=== PATIENT | male | born 1980 | race Caucasian/White ===

== ENCOUNTER 2023-11-02 10:34 | Emergency (ER) | payer OTHER, SELFPAY ==
[2023-11-02] VITALS (8 sets, daily range): BP systolic 143–160; BP diastolic 94–102; PULSE 90–112; RESP 13; TEMP 36.8; O2SAT 92–98; BMI 27.8
--- NOTE | 2023-11-02 11:00 | ED_ITS ---
HPI - General Adult General Chief complaint: Abdominal Pain Stated complaint: L side adb pain T-2/ cant get comfortable Time Seen by Provider: 11/02/23 10:53 Source: patient Mode of arrival: Ambulatory History of Present Illness HPI narrative: Patient is a 43-year-old male. States he has a history of tachycardia. He actually has not been on any of his medications in 2 weeks he was he just retired from the [employer] and has been ?partying? his here for evaluation of left- sided abdominal pain. Started earlier this week. Was a fairly gradual onset and has been persistent since then. No fevers. No nausea or vomiting. No change in bowel habits. No diarrhea or constipation. He did have a regular bowel movement last evening. It did not changes abdominal pain. He has been urinating without issues. He thinks that maybe urinating improves the symptoms for very short period of time. No skin rashes. Related Data Previous Rx's Medication Instructions Recorded hydrocodone 5 mg-acetaminophen 325 1 tab PO Q4-6H PRN pain #14 tabs 11/02/23 mg tablet ondansetron 4 mg disintegrating 4 mg PO Q6H PRN nausea and 11/02/23 tablet vomiting #14 tabs potassium chloride 20 mEq 20 meq PO DAILY 7 days #7 tabs 11/02/23 tablet,extended release tamsulosin 0.4 mg capsule (Flomax) 0.4 mg PO DAILY #14 caps 11/02/23 Allergies Allergy/AdvReac Type Severity Reaction Status Date / Time No Known Drug Allergies Allergy Verified 11/02/23 10:44 Review of Systems Review of Systems Narrative: See HPI Patient History Social History Smoking Status: Current every day smoker Smoking Status: Current every day smoker alcohol intake frequency: 3 or more drinks per day Substance Use Type: does not use Exam Initial Vital Signs Initial Vital Signs: Vital Signs Temperature 98.3 F 11/02/23 10:36 Pulse Rate 112 H 11/02/23 10:36 Respiratory Rate 13 11/02/23 10:36 Blood Pressure 149/102 H 11/02/23 10:36 Pulse Oximetry 95 11/02/23 10:36 Oxygen Delivery Method Room Air 11/02/23 10:36 Const General: cooperative, comfortable and No ill appearing Resp Effort & Inspection: normal respiratory effort Cardio Rate: tachycardic GI Inspection: normal to inspection and non-distended Palpation: soft, No firm, No guarding and tender (Very mild tenderness to palpation left-sided abdomen) Skin General: no rashes or lesions noted Neuro General: patient alert, patient awake, patient oriented x3 and moves all extremities Extrem General: normal to inspection Course Orders Ordered: ED Orders 11/02/23 10:46 EKG-12 Lead Stat 11/02/23 11:00 CT abdomen pelvis w con Stat 11/02/23 11:25 Complete Blood Count AUTO DIFF Stat Comprehensive Metabolic Panel Stat Lipase Stat 11/02/23 13:08 Urine Microscopic Stat Ondansetron HCl (Ondansetron 4 Mg/2 Ml Inj) 4 mg IV NOW PRN PRN Reason: Nausea And Vomiting Discontinued Medications Sodium Chloride (Normal Saline 0.9%) 1,000 mls @ 1,000 mls/hr IV BOLUS ONE Stop: 11/02/23 12:43 Last Infusion: 11/02/23 13:20 Dose: Infused Documented By: Admin: 11/02/23 12:20 Dose: 1,000 mls/hr Documented By: CUONG Potassium Chloride (Potassium Chloride 20 Meq Tab) 40 meq PO NOW ONE Stop: 11/02/23 12:20 Last Admin: 11/02/23 13:18 Dose: 40 meq Documented By: CUONG Vital Signs Vital signs: Vital Signs - 8 hr 11/02/23 10:36 Temperature 98.3 F Pulse Rate 112 H Respiratory Rate 13 Blood Pressure 149/102 H Pulse Oximetry 95 Oxygen Delivery Method Room Air Medical Decision Making Lab Data Lab results reviewed: Yes I reviewed the patient's lab results. 11/02/23 11:25 11/02/23 11:25 Labs: Lab Results 11/02/23 11/02/23 Range/Units 11:25 13:08 WBC 9.7 (4.5-11.0) X10^3/uL RBC 3.90 L (4.5-5.9) X10^6/uL Hgb 13.8 (13.5-17.5) g/dL Hct 39.1 L (41-53) % MCV 100.3 H (80-100) fL MCH 35.3 H (26-34) PG MCHC 35.2 (30-36) % RDW 14.0 (11.6-14.8) % Plt Count 134 L (150-400) X10^3/uL Neut % (Auto) 80.7 H (50-75) % Lymph % (Auto) 11.2 L (25-40) % [place] % (Auto) 7.4 (3-14) % Eos % (Auto) 0.3 L (2-4) % Baso % (Auto) 0.4 (0-2) % Neut # (Auto) 7800 H (0767-2073) /uL Lymph # (Auto) 1100 (8665-1582) /uL [place] # (Auto) 700 (0-900) /uL Eos # (Auto) 0 (0-450) /uL Baso # (Auto) 0 (0-100) /uL Sodium 134 L (137-145) mmol/L Potassium 2.2 L* (3.4-5.1) mmol/L Chloride 88 L (98-107) mmol/L Carbon Dioxide 36 H (22-32) mmol/L BUN 6 L (9-20) mg/dL Creatinine 0.89 (0.66-1.25) mg/dL Estimated GFR > 60 (>60) mL/min BUN/Creatinine Ratio 6.7 (6-22) Glucose 139 H (70-100) mg/dL Calcium 7.3 L (8.4-10.2) mg/dL Total Bilirubin 1.6 H (0.2-1.3) mg/dL AST 41 (17-59) IU/L ALT 26 (<50) IU/L Alkaline Phosphatase 82 (38-126) U/L Total Protein 5.9 L (6.3-8.2) g/dL Albumin 3.4 L (3.5-5.0) g/dL Globulin 2.5 (1.7-4.1) g/dL Albumin/Globulin Ratio 1.4 (1.0-2.8) Lipase 93 (23-300) U/L Urine RBC 0-1/hpf (0-5/HPF) Urine WBC None seen (0-5/HPF) Ur Squamous Epith Cells None seen (0-5/HPF) Calcium Oxalate Crystal Occasional H Urine Bacteria None seen (None) Ur Culture Indicated? Cult not indicated Vol Urine Centrifuged 10ml (spun) Urine Dip Bedside Urine Glucose Negative Bedside Urine Bilirubin - Negative Bedside Urine Ketone - Negative Urine Specific [place] 1.010 Bedside Urine Occult Blood ++ Bedside Urine pH 6.5 Bedside Urine Protein - Negative Bedside Urine Urobilinogen - Negative Bedside Urine Nitrite - Negative Bedside Urine Leukocytes - Negative Esterase Point of care testing: Urine Dip Bedside Urine Glucose Negative Bedside Urine Bilirubin - Negative Bedside Urine Ketone - Negative Urine Specific [place] 1.010 Bedside Urine Occult Blood ++ Bedside Urine pH 6.5 Bedside Urine Protein - Negative Bedside Urine Urobilinogen - Negative Bedside Urine Nitrite - Negative Bedside Urine Leukocytes - Negative Esterase Imaging Data CT scan - abdomen/pelvis: Radiologist's Impression: PROCEDURE: CT ABDOMEN PELVIS W CON INDICATIONS: LLQ abd pain TECHNIQUE: After the administration of intravenous contrast, axial sections acquired from the lung bases to the pubic symphysis. Coronal and sagittal reformats were performed. For radiation dose reduction, the following was used: automated exposure control, adjustment of mA and/or kV according to patient size. COMPARISON: None. FINDINGS: Image quality: Diagnostic. Lower Chest: Mild dependent atelectasis in posterior aspect of bilateral lung bases are seen. Heart size is normal, no pericardial effusion. ABDOMEN: Liver: Diffusely decreased liver parenchymal density is seen. Small amount of free fluid adjacent to anterior aspect of right hepatic lobe is seen. No gross solid appearing hepatic lesion. Gallbladder: There is no calcified gallstones or gallbladder wall thickening. Biliary ducts: No biliary dilation. Pancreas: No ductal dilation. Spleen: Size is within normal limits. Adrenal Glands: No adrenal nodules. Kidneys and Ureters: There is moderate left-sided hydronephrosis and left perinephric fat stranding. Left hydroureter is seen extending to the distal ureter with 7 mm calcifications seen within distal left ureter and measures 150 Hounsfield unit in density series 2, image 80, series 3, image 40. No right-sided hydronephrosis or hydroureter. Stomach and Bowel: There is suggestion of diffuse small bowel wall thickening extending to ileocecal junction with ascending and descending colon wall thickening as well as sigmoid colon wall thickening. Mild mesenteric fat stranding is seen. No abscess collection. Peritoneum: Small amount of free fluid is noted adjacent to right hepatic lobe. Small amount of pelvic free fluid is also seen. No gross free air. Ventral Wall: No significant ventral hernia. Abdominal Nodes: No retroperitoneal or mesenteric adenopathy by size criteria. Vessels: Aorta and inferior vena cava are normal in size. PELVIS: Pelvic Organs: Unremarkable. Bladder: No bladder wall thickening, accounting for underdistention. Pelvic Nodes: No enlarged lymph nodes. Miscellaneous: Small bilateral inguinal hernia are seen containing fat only. Bones: No aggressive osseous abnormality. IMPRESSION: 1. 7 mm stone in left distal ureter causing moderate left-sided hydronephrosis and left proximal to mid hydroureter. Significant left perinephric fat stranding. No right-sided hydronephrosis or hydroureter. Normal appearing urinary bladder. 2. Small amount of free fluid in abdomen. No gross free air. Diffuse small bowel and colon wall thickening with mild pericolonic fat stranding concerning for extensive infectious or inflammatory enterocolitis suggest clinical correlation. No abscess collection. 3. Hepatic steatosis, no discrete hepatic lesion. [facility] Narrative Medical decision making narrative: Patient was tachycardic but this is not unusual for him. CT scan shows 7 mm left-sided distal ureteral stone which does correspond to his presenting symptoms today. He was afebrile. Patient is hypokalemic. He states he has been hypokalemic 1 time in the past and he was put on oral potassium for a couple days but has not had follow-up since then. He has not been vomiting recently. Does have left-sided hydro. No signs of UTI. Kidney functions unremarkable. No indication for emergent urologic consultation. Will discharge patient home with symptom control on medications. He was given return precautions and follow-up instructions. He expressed understanding and agreement. Discharge Plan Departure Patient Disposition: Home Clinical Impression: Left ureteral calculus, Hypokalemia Instructions: DI for Kidney Stones Activity Restrictions/Additional Instructions: I do recommend that you contact your primary doctor for follow-up. Take all of the medications as directed. Contact the urologist at the number provided below for follow-up. Return to the emergency department for new or worsening symptoms like we discussed Prescriptions: New tamsulosin [Flomax] 0.4 mg capsule 0.4 mg PO DAILY Qty: 14 0RF ondansetron 4 mg tablet,disintegrating 4 mg PO Q6H PRN (Reason: nausea and vomiting) Qty: 14 0RF hydrocodone-acetaminophen 5-325 mg tablet 1 tab PO Q4-6H PRN (Reason: pain) Qty: 14 0RF potassium chloride 20 mEq tablet extended release 20 meq PO DAILY 7 Days Qty: 7 0RF Referrals: Miscellaneous,Doctor, MD [Primary Care Provider] - Matthieu Torres MD [Physician] - Stand Alone Forms: Patient Portal/API
[2023-11-02 11:36] LABS: Add Manual Diff / Slide Review NO; Basophils Absolute Auto 0 /uL (0-100); Basophils Percent Auto 0.4 % (0-2); Eosinophils Absolute Auto 0 /uL (0-450); Eosinophils Percent Auto 0.3 % (2-4); Hematocrit 39.1 % (41-53); Hemoglobin 13.8 g/dL (13.5-17.5); Lymphocytes Absolute Auto 1100 /uL (1100-4500); Lymphocytes Percent Auto 11.2 % (25-40); Mean Corpuscular HGB Conc 35.2 % (30-36); Mean Corpuscular Hemoglobin 35.3 PG (26-34); Mean Corpuscular Volume 100.3 fL (80-100); Monocytes Absolute Auto 700 /uL (0-900); Monocytes Percent Auto 7.4 % (3-14); Neutrophils Absolute Auto 7800 /uL (1500-7000); Neutrophils Percent Auto 80.7 % (50-75); Platelet Count 134 X10^3/uL (150-400); White Blood Cell Count 9.7 X10^3/uL (4.5-11.0)
[2023-11-02 11:55] LABS: Alanine Aminotransferase 26 IU/L (<50); Albumin 3.4 g/dL (3.5-5.0); Albumin Globulin Ratio 1.4 (1.0-2.8); Alkaline Phosphatase 82 U/L (38-126); Aspartate Aminotransferase 41 IU/L (17-59); BUN Creatinine Ratio 6.7 (6-22); Bilirubin Total 1.6 mg/dL (0.2-1.3); Blood Urea Nitrogen 6 mg/dL (9-20); Calcium 7.3 mg/dL (8.4-10.2); Chloride 88 mmol/L (98-107); Estimated Glomerular Filt Rate > 60 mL/min (>60); Globulin 2.5 g/dL (1.7-4.1); Glucose 139 mg/dL (70-100); HEMOLYSIS < 15 (0-50); Lipase 93 U/L (23-300); Sodium 134 mmol/L (137-145); Total Protein 5.9 g/dL (6.3-8.2)
[2023-11-02 12:01] LABS: Carbon Dioxide 36 mmol/L (22-32)
[2023-11-02 12:03] LABS: Potassium 2.2 mmol/L (3.4-5.1)
[2023-11-02] MEDS: SODIUM CHLORIDE 0.9% 1,000 ML 1000 ML IV (12:20)
[2023-11-02] MEDS: POTASSIUM CHLORIDE 20 MEQ TAB 40 MEQ PO (13:18)
[2023-11-02 13:35] LABS: Bacteria Urine None Seen; Calcium Oxalate Crystals Urine Occasional; Culture Indicated Urine Cult Not Indicated; RBC Urine 0-1/HPF (0-5/HPF); Squamous Epithelial Cell Urine None Seen (0-5/HPF); Urine Volume 10mL (spun); WBC Urine None Seen (0-5/HPF)
== END 2023-11-02 14:11 | disposition home or self-care (01) ==
PROVIDERS: Emergency Provider Emergency Medicine
DX: N20.1 Calculus of ureter (principal); E87.6 Hypokalemia
CPT/HCPCS: 36415; 74177; 80053; 81003; 81015; 83690; 85025; 99284; Q9967

== ENCOUNTER 2025-01-30 22:35 | Inpatient (IN) | payer OTHER, SELFPAY ==
[2025-01-30 22:39] VITALS: BP 116/88; PULSE 123; RESP 20; TEMP 36.9; O2SAT 99; BMI 27.8
--- NOTE | 2025-01-30 23:07 | EKG_ITS ---
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
[2025-01-30 23:40] LABS: Add Manual Diff / Slide Review NO; Hematocrit 53.2 % (41-53); Hemoglobin 17.9 g/dL (13.5-17.5); Lymphocytes Absolute Auto 1400 /uL (1100-4500); Mean Corpuscular HGB Conc 33.6 % (30-36); Mean Corpuscular Hemoglobin 28.1 PG (26-34); Mean Corpuscular Volume 83.7 fL (80-100); Platelet Count 214 X10^3/uL (150-400)
[2025-01-30 23:59] LABS: RBC Morphology Normal Morphology
[2025-01-31] VITALS (36 sets, daily range): BP systolic 103–123; BP diastolic 75–96; PULSE 81–104; RESP 16–27; TEMP 35.8–36.3; O2SAT 87–100; BMI 22.8
[2025-01-31 00:27] LABS: Alanine Aminotransferase 17 IU/L (<50); Albumin 3.0 g/dL (3.5-5.0); Albumin Globulin Ratio 1.1 (1.0-2.8); Alkaline Phosphatase 65 U/L (38-126); Blood Urea Nitrogen 43 mg/dL (9-20); Calcium 9.1 mg/dL (8.4-10.2); Carbon Dioxide 26 mmol/L (22-32); Chloride 92 mmol/L (98-107); Estimated Glomerular Filt Rate 41 mL/min (>60); Globulin 2.8 g/dL (1.7-4.1); Glucose 122 mg/dL (70-99); HEMOLYSIS 20 (0-50); Lipase 102 U/L (23-300); Potassium 3.7 mmol/L (3.4-5.1); Sodium 128 mmol/L (137-145); Total Protein 5.8 g/dL (6.3-8.2)
--- NOTE | 2025-01-31 00:40 | DI.CT.S_ITS ---
PROCEDURE: CT ABDOMEN PELVIS WO CON INDICATIONS: abd pain, ascites, WBC 18k, diarrhea TECHNIQUE: CT of the abdomen and pelvis was obtained without intravenous contrast. Coronal and sagittal reformats were performed. For radiation dose reduction, the following was used: automated exposure control, adjustment of mA and/or kV according to patient size. COMPARISON: None. FINDINGS: Image quality: Diagnostic. Lower Chest: No significant findings. ABDOMEN: Liver: Cirrhosis. No large mass. Gallbladder: Cholelithiasis without wall thickening or adjacent fat stranding to suggest acute cholecystitis. Biliary ducts: No biliary dilation. Pancreas: No ductal dilation. Spleen: Size is within normal limits. Adrenal Glands: No adrenal nodules. Kidneys and Ureters: 2 stones present within the right-sided renal pelvis measuring 5 mm and 7 mm. Multiple stones within the left ureter, all of which measure less than 5 mm. Additional stones within the left renal pelvis measuring up to 8 mm. No hydronephrosis. Stomach and Bowel: Normal colonic caliber, without significant wall thickening. Peritoneum: Large volume ascites. Ventral Wall: No significant hernia. Abdominal Nodes: No retroperitoneal or mesenteric adenopathy by size criteria. Vessels: Aorta and inferior vena cava are normal in size. PELVIS: Pelvic Organs: Unremarkable. Bladder: Unremarkable. Pelvic Nodes: No enlarged lymph nodes. Miscellaneous: Moderate left indirect inguinal hernia containing fluid. Bones: No aggressive osseous abnormality. Degenerative disc disease of the lumbar spine. Bulky facet osteophyte at L4-5 causing moderate spinal canal narrowing. IMPRESSION: Large volume ascites. Spontaneous bacterial peritonitis is not excluded. Multiple stone layering within the left ureter, without hydronephrosis. Infection not excluded in this setting. Correlate with urinalysis. Bulky facet osteophyte at L4-5 causing moderate spinal canal narrowing. Cirrhotic liver morphology. No large solid mass. Dictated by: Henrique Murillo M.D. on 01/31/2025 at 1:22 Approved by: Henrique Murillo M.D. on 01/31/2025 at 1:26
[2025-01-31] MEDS: SODIUM CHLORIDE 0.9% 1,000 ML 1000 ML IV (01:23)
--- NOTE | 2025-01-31 03:12 | ED_ITS ---
HPI - Abdominal Pain General Chief Complaint: Abdominal Pain Stated Complaint: diarrhea + vomiting since am, abd bloat Time Seen by Provider: 01/31/25 00:39 Source: patient Mode of arrival: Ambulatory History of Present Illness HPI narrative: 44-year-old male with history of ascites, prior paracentesis procedures, having abdominal pain, also loose stools, no black or red stools. He does not feel feverish. He denies cough shortness of breath. Denies back pain flank pain, no painful or frequent urination. He feels that his abdomen is quite distended, would prefer pubic paracentesis if possible. Related Data Home Medications ?Medication ?Instructions ?Recorded ?Confirmed diclofenac sodium 1 % topical gel 2.25 inch topical BI D 01/31/25 01/31/25 furosemide 20 mg tablet 40 mg PO DAILY 01/31/2501/08 methocarbamol 500 mg tablet 500 mg PO .NIGHT 01/31/25 01/31/25 spironolactone 25 mg tablet 100 mg PO DAILY 01/31/25 0 01/31/25 Previous Rx's ?Medication ?Instructions ?Recorded ondansetron 4 mg disintegrating 4 mg PO Q6H PRN nausea and 11/02/23 tablet vomiting #14 tabs tamsulosin 0.4 mg capsule (Flomax) 0.4 mg PO DAILY #14 caps 11/02/23 Allergies Allergy/AdvReac Type Severity Reaction Status Date / Time No Known Drug Allergies Allergy Verified 11/02/23 10:44 Patient History Social History household members: spouse Smoking Status: Current every day smoker alcohol intake: former Smoking Status: Current every day smoker tobacco type: cigarettes alcohol intake frequency: 3 or more drinks per day Exam Narrative Exam Narrative: GENERAL: Well-developed patient, in mild distress. HEAD: Atraumatic. Normocephalic. EYES: Pupils equal round and reactive. Extraocular motions intact. No scleral icterus. No injection or drainage. ENT: Nose without bleeding, purulent drainage. Throat without erythema, tonsillar hypertrophy or exudate. Airway patent. NECK: Trachea midline. Non tender CARDIOVASCULAR: Regular rate and rhythm without murmurs, gallops, or rubs. RESPIRATORY: Clear to auscultation. Breath sounds equal bilaterally. No wheezes, rales, or rhonchi. GASTROINTESTINAL: Abdomen distended, with central tympany and gutter dullness to percussion, consistent with ascites, no significant tenderness. EXTREMITIES: No edema or joint tenderness. BACK: Nontender without deformity or crepitance. No flank tenderness. NEURO: AOx3. Motor functions grossly nonfocal. SKIN: No rash or erythema of visible areas Initial Vital Signs Initial Vital Signs: Vital Signs Temperature 98.5 F 01/30/25 22:39 Pulse Rate 123 H 01/30/25 22:39 Respiratory Rate 20 01/30/25 22:39 Blood Pressure 116/88 01/30/25 22:39 Pulse Oximetry 99 01/30/25 22:39 Oxygen Delivery Method Room Air 01/30/25 22:39 Procedures Paracentesis Time of procedure: 05:30 Indication: Ascites and possible spontaneous bacterial peritonitis (Evaluate for) Procedure: therapeutic paracentesis and diagnostic paracentesis Location: RLQ Local Anesthetic: lidocaine 1% Amount of anesthesia used (mL): 5 Bedside Ultrasound Used: yes, real-time guidance (Large right lower quadrant fluid pocket) Amount of fluid obtained (mL): 8,000 Fluid: clear Size of Needle Used: 16 (Paracentesis kit, catheter over needle) Post Procedure Exam: awake, alert Patient Tolerated Procedure: Well Complications: none Course Orders Ordered: ED Orders 01/31/25 23:50 Blood Culture Stat Sodium Chloride (Normal Saline 0.9%) 1,000 mls @ 75 mls/hr IV CONT [facility] Last Admin: 02/01/25 00:42 Dose: 75 mls/hr Documented By: Infusion: 02/01/25 00:42 Dose: Infused Documented By: Admin: 01/31/25 11:39 Dose: 75 mls/hr Documented By: GEGE Methocarbamol (Methocarbamol 500 Mg Tablet) 500 mg PO BEDTIME [facility] Last Admin: 01/31/25 20:49 Dose: 500 mg Documented By: CAMDEN Naloxone HCl (Naloxone 0.4 Mg/Ml Vial) 0.2 mg IV Q2MIN PRN PRN Reason: Opiate Reversal Nicotine (Nicotine 14 Patch) 14 mg TOP DAILY [facility] Last Admin: 01/31/25 11:40 Dose: 14 mg Documented By: GEGE Ondansetron HCl (Ondansetron 4 Mg/2 Ml Inj) 4 mg IV NOW PRN PRN Reason: Nausea And Vomiting Last Admin: 01/31/25 09:48 Dose: 4 mg Documented By: GEGE Ondansetron HCl (Ondansetron 4 Mg Odt) 4 mg PO NOW PRN PRN Reason: Nausea And Vomiting Ondansetron HCl (Ondansetron 4 Mg/2 Ml Inj) 4 mg IV Q2HR PRN PRN Reason: Nausea And Vomiting Last Admin: 01/31/25 20:22 Dose: 4 mg Documented By: JT Discontinued Medications Sodium Chloride (Normal Saline 0.9%) 1,000 mls @ 1,000 mls/hr IV BOLUS ONE Stop: 01/31/25 01:51 Last Infusion: 01/31/25 07:40 Dose: Infused Documented By: Admin: 01/31/25 01:23 Dose: 1,000 mls/hr Documented By: CUONG Albumin Human (Albuminar) 25 gm in 100 mls @ 60 mls/hr IV NOW ONE Stop: 01/31/25 07:38 Last Infusion: 01/31/25 08:06 Dose: Infused Documented By: Admin: 01/31/25 06:11 Dose: 60 mls/hr Documented By: JUDITH Sodium Chloride (Normal Saline 0.9%) 1,000 mls @ 2,000 mls/hr IV BOLUS ONE Stop: 01/31/25 08:13 Last Infusion: 01/31/25 09:21 Dose: Infused Documented By: Admin: 01/31/25 08:42 Dose: 2,000 mls/hr Documented By: CORIN Ceftriaxone Sodium 1,000 mg/ (Sodium Chloride) 100 mls @ 200 mls/hr IV NOW ONE Stop: 01/31/25 07:47 Last Infusion: 01/31/25 09:21 Dose: Infused Documented By: Admin: 01/31/25 08:42 Dose: 200 mls/hr Documented By: CORIN Vital Signs Vital signs: Vital Signs - 8 hr 01/31/25 00:45 01/31/25 01:09 01/31/25 01:18 Pulse Rate 103 H Respiratory Rate 26 H Blood Pressure 115/85 113/83 Pulse Oximetry 97 Oxygen Delivery Method 01/31/25 01:18 01/31/25 01:30 01/31/25 01:30 Pulse Rate 102 H 96 H Respiratory Rate 22 21 Blood Pressure 113/85 Pulse Oximetry 99 98 Oxygen Delivery Method 01/31/25 02:00 01/31/25 02:00 01/31/25 02:30 Pulse Rate 93 H Respiratory Rate 23 Blood Pressure 115/90 119/90 Pulse Oximetry 100 Oxygen Delivery Method Room Air 01/31/25 02:30 01/31/25 03:00 01/31/25 04:33 Pulse Rate 102 H 102 H 101 H Respiratory Rate 27 H 22 25 H Blood Pressure Pulse Oximetry 97 95 96 Oxygen Delivery Method 01/31/25 04:37 01/31/25 04:37 01/31/25 05:00 Pulse Rate 104 H 103 H Respiratory Rate 21 18 Blood Pressure 103/79 Pulse Oximetry 95 97 Oxygen Delivery Method 01/31/25 05:01 01/31/25 05:01 01/31/25 05:30 Pulse Rate 102 H Respiratory Rate 21 Blood Pressure 110/86 105/77 Pulse Oximetry 94 Oxygen Delivery Method 01/31/25 05:30 01/31/25 05:40 01/31/25 05:40 Pulse Rate 98 H 97 H Respiratory Rate 22 21 Blood Pressure 111/84 Pulse Oximetry 96 95 Oxygen Delivery Method 01/31/25 05:50 01/31/25 05:50 01/31/25 06:00 Pulse Rate 98 H 96 H Respiratory Rate 20 19 Blood Pressure 107/79 Pulse Oximetry 97 98 Oxygen Delivery Method Room Air 01/31/25 06:00 01/31/25 06:10 01/31/25 06:10 Pulse Rate 93 H Respiratory Rate 20 Blood Pressure 111/78 106/82 Pulse Oximetry 98 Oxygen Delivery Method 01/31/25 06:20 01/31/25 06:20 01/31/25 06:30 Pulse Rate 89 87 Respiratory Rate 19 21 Blood Pressure 111/80 Pulse Oximetry 98 98 Oxygen Delivery Method 01/31/25 06:30 01/31/25 06:40 01/31/25 06:40 Pulse Rate 86 Respiratory Rate 19 Blood Pressure 110/82 110/81 Pulse Oximetry 97 Oxygen Delivery Method 01/31/25 06:50 01/31/25 06:50 01/31/25 07:00 Pulse Rate 86 Respiratory Rate 21 Blood Pressure 107/79 111/81 Pulse Oximetry 100 Oxygen Delivery Method 01/31/25 07:00 01/31/25 07:10 01/31/25 07:10 Pulse Rate 92 H 90 Respiratory Rate 22 20 Blood Pressure 104/79 Pulse Oximetry 98 98 Oxygen Delivery Method 01/31/25 07:20 01/31/25 07:20 Pulse Rate 85 Respiratory Rate 21 Blood Pressure 112/81 Pulse Oximetry 98 Oxygen Delivery Method MDM - Abdominal Pain Lab Data Attestation: I reviewed the patient's lab results. Lab results narrative: White blood cell count 27503, hemoglobin 17.9, platelets 214,000. BUN 43 with creatinine 2.02 elevated. Serum glucose 122. Serum sodium 128, serum potassium 3.7, serum CO2 26. Liver functions normal range. Lipase normal. 01/30/25 23:03 01/31/25 16:31 Labs: Lab Results 01/30/25 01/30/25 01/31/25 Range/Units 23:03 23:59 03:03 WBC 18.1 H (4.5-11.0) X10^3/uL RBC 6.36 H (4.5-5.9) X10^6/uL Hgb 17.9 H (13.5-17.5) g/dL Hct 53.2 H (41-53) % MCV 83.7 (80-100) fL MCH 28.1 (26-34) PG MCHC 33.6 (30-36) % RDW 15.4 H (11.6-14.8) % Plt Count 214 (150-400) X10^3/uL Neut % (Auto) 83.9 H (50-75) % Lymph % (Auto) 7.9 L (25-40) % [place] % (Auto) 7.3 (3-14) % Eos % (Auto) 0.6 L (2-4) % Baso % (Auto) 0.3 (0-2) % Neut # (Auto) 81310 H (9812-2072) /uL Lymph # (Auto) 1400 (6488-7978) /uL [place] # (Auto) 1300 H (0-900) /uL Eos # (Auto) 100 (0-450) /uL Baso # (Auto) 100 (0-100) /uL Platelet Estimate Adequate on smear RBC Morphology Normal morphology PT 12.9 H (9.4-12.5) SECONDS INR 1.1 (0.9-1.3) Sodium 128 L (137-145) mmol/L Potassium 3.7 (3.4-5.1) mmol/L Chloride 92 L (98-107) mmol/L Carbon Dioxide 26 (22-32) mmol/L BUN 43 H (9-20) mg/dL Creatinine 2.02 H (0.66-1.25) mg/dL Estimated GFR 41 L (>60) mL/min BUN/Creatinine Ratio 21.3 (6-22) Glucose 122 H (70-99) mg/dL Calcium 9.1 (8.4-10.2) mg/dL Total Bilirubin 0.9 (0.2-1.3) mg/dL AST 20 (17-59) IU/L ALT 17 (<50) IU/L Alkaline Phosphatase 65 (38-126) U/L Total Protein 5.8 L (6.3-8.2) g/dL Albumin 3.0 L (3.5-5.0) g/dL Globulin 2.8 (1.7-4.1) g/dL Albumin/Globulin Ratio 1.1 (1.0-2.8) Lipase 102 (23-300) U/L Fluid Color Fluid Appearance Fluid RBC /uL Fld Tot Nucleated Cell /uL Fluid Neutrophils % % Fluid Lymphocytes % % Fluid Meso/Macro/[place] % % Body Fluid Clot 07/25/25 Range/Units 05:30 WBC (4.5-11.0) X10^3/uL RBC (4.5-5.9) X10^6/uL Hgb (13.5-17.5) g/dL Hct (41-53) % MCV (80-100) fL MCH (26-34) PG MCHC (30-36) % RDW (11.6-14.8) % Plt Count (150-400) X10^3/uL Neut % (Auto) (50-75) % Lymph % (Auto) (25-40) % [place] % (Auto) (3-14) % Eos % (Auto) (2-4) % Baso % (Auto) (0-2) % Neut # (Auto) (6735-8432) /uL Lymph # (Auto) (8223-9932) /uL [place] # (Auto) (0-900) /uL Eos # (Auto) (0-450) /uL Baso # (Auto) (0-100) /uL Platelet Estimate RBC Morphology PT (9.4-12.5) SECONDS INR (0.9-1.3) Sodium (137-145) mmol/L Potassium (3.4-5.1) mmol/L Chloride (98-107) mmol/L Carbon Dioxide (22-32) mmol/L BUN (9-20) mg/dL Creatinine (0.66-1.25) mg/dL Estimated GFR (>60) mL/min BUN/Creatinine Ratio (6-22) Glucose (70-99) mg/dL Calcium (8.4-10.2) mg/dL Total Bilirubin (0.2-1.3) mg/dL AST (17-59) IU/L ALT (<50) IU/L Alkaline Phosphatase (38-126) U/L Total Protein (6.3-8.2) g/dL Albumin (3.5-5.0) g/dL Globulin (1.7-4.1) g/dL Albumin/Globulin Ratio (1.0-2.8) Lipase (23-300) U/L Fluid Color Yellow Fluid Appearance Hazy Fluid RBC 522 /uL Fld Tot Nucleated Cell 295 /uL Fluid Neutrophils % 51 % Fluid Lymphocytes % 42 % Fluid Meso/Macro/[place] % 7 % Body Fluid Clot No clots present Imaging Data CT scan - abdomen/pelvis: Radiologist's Impression: Close Abdomen/Pelvis CT (Signed) Henrique Murillo - 01/31/25 Launch?[place] [address] CT Scan Report Signed Patient: Mian Dunlap MR#: [id number] : 1980 Acct:[id number] Age/Sex: 44 / M Date of Service: 01/31/25 Loc: ED Accession Number: [id number] Procedure: CT abdomen pelvis wo con Ordering Provider: Naun Baires MD PROCEDURE: CT ABDOMEN PELVIS WO CON INDICATIONS: abd pain, ascites, WBC 18k, diarrhea TECHNIQUE: CT of the abdomen and pelvis was obtained without intravenous contrast. Coronal and sagittal reformats were performed. For radiation dose reduction, the following was used: automated exposure control, adjustment of mA and/or kV according to patient size. COMPARISON: None. FINDINGS: Image quality: Diagnostic. Lower Chest: No significant findings. ABDOMEN: Liver: Cirrhosis. No large mass. Gallbladder: Cholelithiasis without wall thickening or adjacent fat stranding to suggest acute cholecystitis. Biliary ducts: No biliary dilation. Pancreas: No ductal dilation. Spleen: Size is within normal limits. Adrenal Glands: No adrenal nodules. Kidneys and Ureters: 2 stones present within the right-sided renal pelvis measuring 5 mm and 7 mm. Multiple stones within the left ureter, all of which measure less than 5 mm. Additional stones within the left renal pelvis measuring up to 8 mm. No hydronephrosis. Stomach and Bowel: Normal colonic caliber, without significant wall thickening. Peritoneum: Large volume ascites. Ventral Wall: No significant hernia. Abdominal Nodes: No retroperitoneal or mesenteric adenopathy by size criteria. Vessels: Aorta and inferior vena cava are normal in size. PELVIS: Pelvic Organs: Unremarkable. Bladder: Unremarkable. Pelvic Nodes: No enlarged lymph nodes. Miscellaneous: Moderate left indirect inguinal hernia containing fluid. Bones: No aggressive osseous abnormality. Degenerative disc disease of the lumbar spine. Bulky facet osteophyte at L4-5 causing moderate spinal canal narrowing. IMPRESSION: Large volume ascites. Spontaneous bacterial peritonitis is not excluded. Multiple stone layering within the left ureter, without hydronephrosis. Infection not excluded in this setting. Correlate with urinalysis. Bulky facet osteophyte at L4-5 causing moderate spinal canal narrowing. Cirrhotic liver morphology. No large solid mass. Dictated by: Henrique Murillo M.D. on 01/31/2025 at 1:22 Approved by: Henrique Murillo M.D. on 01/31/2025 at 1:26 ECG Data Attestation: I personally reviewed and interpreted this ECG as follows: Interpretation: 2307, sinus tachycardia with rate of 109, no obvious ST segment elevation or depression changes. LA 128, QRS 80, QTC 449. MDM Narrative Medical decision making narrative: 44-year-old male with history of ascites and cirrhosis, recent diarrhea, abdominal pain, increasing abdominal distention. Afebrile, sirs screen negative. Large volume ascites but not tense on examination, no guarding or rebound tenderness. Some dyspnea, patient prefers therapeutic tap when diagnostic peritoneal fluid tap discussed. Labs pending. Lab data: White blood cell count 43866, hemoglobin 17.9, platelets 214,000. BUN 43 with creatinine 2.02 elevated. Serum glucose 122. Serum sodium 128, serum potassium 3.7, serum CO2 26. Liver functions normal range. Lipase normal. INR 1.[address] abdomen and pelvis. Impressions: ?Large volume ascites. Spontaneous bacterial peritonitis is not excluded. Multiple stone layering within the left ureter, without hydronephrosis. Infection not excluded in this setting. Correlate with urinalysis. Bulky facet osteophyte at L4-5 causing moderate spinal canal narrowing. Cirrhotic liver morphology. No large solid mass. Large volume paracentesis, 8-L withdrawn, non turbid, nonbloody appearing. See separate procedure note. Ascites fluid studies sent. Paracentesis fluid results. Nucleated cells 295, 51% neutrophils, 42% lymphs, 7% monocytes. ANC less than 250, not consistent with SBP. Fluid culture pending. IV 25 g albumin infusion ordered. UA pending. Normal renal function prior, AP, IV albumin infusion ordered. Consider admission. We will contact hospitalist. 9022, case discussed with hospitalist Dr. Stover, who accepts patient for admission. Requests blood cultures be sent, and urine culture be sent, then start IV ceftriaxone. Paracentesis fluid culture already requested. Critical Care Time Critical Care Time Critical Care Time: Yes Total Critical Care Time: 35 Attestation: The high probability of a clinically significant, sudden or life threatening deterioration of the [abdominopelvic, genitourinary] system(s) required my full and direct attention, intervention and personal management. The aggregate critical care time was [35] minutes. This time is in addition to time spent performing reported procedures but includes the following: [x] Data Review and interpretation [x] Patient assessment and monitoring of vital signs [x] Documentation [x] Medication orders and management Discharge Plan Departure Patient Disposition: Admitted As Inpatient Clinical Impression: Abdominal pain, Abdominal ascites, Diarrhea, AP (acute kidney injury), Nephrolithiasis Admit Date/Time: 01/31/25 07:55 Admit Provider: Ludwin Stover
[2025-01-31] MEDS: ALBUMIN HUMAN 25 GM/100 ML VIAL IV (06:11)
[2025-01-31 06:34] LABS: Body Fluid Tot Nucleated Cells 295 /uL
[2025-01-31 07:08] LABS: Body Fluid Clotted? NO CLOTS PRESENT; Lymphocytes Body Fluid 42 %; MESO/MACRO/MONO Body Fluid 7 %; Neutrophils Body Fluid 51 %
[2025-01-31 07:17] LABS: INR 1.1 (0.9-1.3); Prothrombin Time 12.9 SECONDS (9.4-12.5)
[2025-01-31] MEDS: SODIUM CHLORIDE 0.9% 1,000 ML 2000 ML IV (08:42)
[2025-01-31] MEDS: ONDANSETRON 4 MG/2 ML INJ IV ×2 (09:48→20:22)
--- NOTE | 2025-01-31 09:55 | PC.WOUNDPHOT ---
01/31/25 0955 photo of coccyx
--- NOTE | 2025-01-31 10:45 | PC.ADMIT ---
[address] Admission Note: PT ARRIVED TO UNIT AT 0935. A/OX4. 96% ON ROOM AIR. NO C/O SOB OR S/S OF RESPI DISTRESS. BP 106/75. PT STATES HE IS NOT IN PAIN BUT IN MILD ABD DISCOMFORT. WOUND TO BOTTOM. PHOTO TAKEN AND UPLOADED. AT BEDSIDE. CHANDANA MADE AWARE OF PATIENT ARRIVAL. OK TO ORDER REG DIET PER MD. 1040: DR ELLINGTON AT BEDSIDE. STATES OK TO D/C PT TELE. Q4 VS UNTIL TONIGHT. WILL PLACE ORDERS FOR IV FLUIDS/ MEDS. The patient,Mina Dunlap,44 y/o, was given written information regarding hospital policies, unit procedures and contact persons. Patient's smoking status: Current every day smoker. Vital Signs - 8 hr 01/31/25 03:00 01/31/25 04:33 01/31/25 04:37 Pulse Rate 102 H 101 H Respiratory Rate 22 25 H Blood Pressure 103/79 Pulse Oximetry 95 96 Oxygen Delivery Method 01/31/25 04:37 01/31/25 05:00 01/31/25 05:01 Pulse Rate 104 H 103 H 102 H Respiratory Rate 21 18 21 Blood Pressure Pulse Oximetry 95 97 94 Oxygen Delivery Method 01/31/25 05:01 01/31/25 05:30 01/31/25 05:30 Pulse Rate 98 H Respiratory Rate 22 Blood Pressure 110/86 105/77 Pulse Oximetry 96 Oxygen Delivery Method 01/31/25 05:40 01/31/25 05:40 01/31/25 05:50 Pulse Rate 97 H 98 H Respiratory Rate 21 20 Blood Pressure 111/84 Pulse Oximetry 95 97 Oxygen Delivery Method Room Air 01/31/25 05:50 01/31/25 06:00 01/31/25 06:00 Pulse Rate 96 H Respiratory Rate 19 Blood Pressure 107/79 111/78 Pulse Oximetry 98 Oxygen Delivery Method 01/31/25 06:10 01/31/25 06:10 01/31/25 06:20 Pulse Rate 93 H 89 Respiratory Rate 20 19 Blood Pressure 106/82 Pulse Oximetry 98 98 Oxygen Delivery Method 01/31/25 06:20 01/31/25 06:30 01/31/25 06:30 Pulse Rate 87 Respiratory Rate 21 Blood Pressure 111/80 110/82 Pulse Oximetry 98 Oxygen Delivery Method 01/31/25 06:40 01/31/25 06:40 01/31/25 06:50 Pulse Rate 86 86 Respiratory Rate 19 21 Blood Pressure 110/81 Pulse Oximetry 97 100 Oxygen Delivery Method 01/31/25 06:50 01/31/25 07:00 01/31/25 07:00 Pulse Rate 92 H Respiratory Rate 22 Blood Pressure 107/79 111/81 Pulse Oximetry 98 Oxygen Delivery Method 01/31/25 07:10 01/31/25 07:10 01/31/25 07:20 Pulse Rate 90 85 Respiratory Rate 20 21 Blood Pressure 104/79 Pulse Oximetry 98 98 Oxygen Delivery Method 01/31/25 07:20 01/31/25 09:45 Pulse Rate Respiratory Rate Blood Pressure 112/81 Pulse Oximetry Oxygen Delivery Method Room Air
[2025-01-31] MEDS: SODIUM CHLORIDE 0.9% 1,000 ML 75 ML IV (11:39)
[2025-01-31] MEDS: NICOTINE 14 PATCH 14 MG TOP (11:40)
[2025-01-31 12:03] LABS: MRSA (Nasal) PCR NOT DETECTED (Not Detect)
--- NOTE | 2025-01-31 13:37 | CM.DANOTE ---
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 Patient reports there was one month that he and his were struggling financially but things have gotten better and patient has income from unemployment currently. Patient denies needs from this SW team. Appreciative for the visit. Original Note: Initial DCP Assessment Note Pt is a 44 yo male, resident of [place], admitted for management of AP, abd pain, abd ascites-possible bacterial peritonitis. History of ETOH use, ascites and cirrhosis. last drink was reported as October 2024. PCP: Reshma Whatley Payer: Mati Cox Reviewed chart, SW consult ordered. Patient reported difficulty paying utility bills and accessing food in the last 6-12 months. Spouse and parents at bedside this morning, patient sleeping soundly this afternoon. SW team will follow closely to complete initial assessment of need and discuss community resources as needed. Patient lives independently with spouse in [place], anticipate return home with family when medically stable to do so. No barriers identified at this time to patient's safe discharge home w/family to assist; close outpatient f/u recommended. Will review community resources with patient after assessment of need is completed. Social work team will plan to follow clinical course closely. 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 Yes Advance Directives No on File History Provided By Patient,Significant Other Prior Living House Arrangements Household Members spouse Type of Drives own vehicle transporation used prior to admit Independent with ADL Yes 's Is patient alert and Yes oriented? Comment Independent Comment Home w/sp Barriers to No Discharge Comment DC when medically stable Discharge Plan Home Community Services Social Work Transportation Family Arrangement Referrals Initiated Other Additional Comment Patient reported difficulty paying utility bills and accessing food in the last 6-12 months.
--- NOTE | 2025-01-31 14:01 | DIET.CONS ---
Dietary Consultation Note Admission Date: 01/31/2025 07:55 Assessment: 44 y M admitted for AP, ascites. Dietitian consulted for decreased appetite. Pt sleeping upon attempted visit, EMR reviewed. Per [employer]PER[employer] note, pt has been having difficulty accessing food last 6-12 months. Ht: 180.34 cm Wt: 74.5 kg BMI: 22.8 UBW: 8L fluids removed from ascites in ED Last BM: 01/30/25 (01/31/25 09:52) MNA: 7 Tobin Score: 15 Diet: 01/31/25 Lunch General (Regular) Diet Diet Modifications: Food Texture: Level 7 - Regular Liquid Consistency: Level 0 - Thin Labs: RBC 6.36 X10^6/uL (4.5-5.9) H 01/30/25 23:03 Hgb 17.9 g/dL (13.5-17.5) H 01/30/25 23:03 Hct 53.2 % (41-53) H 01/30/25 23:03 Creatinine 2.02 mg/dL (0.66-1.25) H 01/30/25 23:59 Nutrition Diagnosis: Inadequate oral intakes r/t decreased appetite and limited food accessibility aeb ascites, MNA score Interventions: -ONS plus added BID (plus over enlive per AP), adjust per tolerance and PO intakes EER: 2250 kcals (30 kcals/kg per cirrhosis) 75 g/kg (1 g/kg per cirrhosis w/ AP) Monitoring/Evaluations: f/u for full assessment, PO intakes, labs Electronically Signed by: Nano Manrique 01/31/25 14:01 Clinical Dietitian [address] [id number]
--- NOTE | 2025-01-31 15:11 | P.HP_ITS ---
History of Present Illness History of Present Illness Date Patient Seen: 01/31/25 Chief complaint: diarrhea + vomiting since am, abd bloat Narrative: Chief complaint: Severe weakness and diarrhea abdominal discomfort and pain with distention from ascites with acute kidney injury likely prerenal azotemia History of present illness: 01/31: 44-year-old with a history of heavy alcohol use quit exactly 90 days prior to admission after he was hospitalized in the intensive care unit and informed that he was not going to survive if he continued drinking. Patient has had 1 week of watery diarrhea and intractable vomiting with abdominal bloating fever and chills. Patient was brought to the emergency room for evaluation of the symptoms Findings in the emergency department significant for large volume ascites which underwent paracentesis and 8 L was removed chased by IV albumin and 2 [place] [address] sodium of 128 BUN 43 creatinine 2 which is up from 6 and 0.9 total bilirubin which is improved from 1.[address] of the abdomen and pelvis demonstrates multiple small stones in the left pelvis and ureter but no hydronephrosis no stranding and no obstruction Patient was admitted or acute kidney injury likely volume loss from diarrhea and some component of volume loss in ascitic fluid as well as risk of hepatorenal syndrome. Patient is started on IV fluid resuscitation Review of systems: No chest pain palpitations shortness for breath No urinary symptoms No paresthesia paresis No loss of consciousness or hallucinosis Physical exam: Chronically ill middle-aged male with stigmata of chronic liver disease HEENT unremarkable Heart rate and rhythm regular Lungs clear from apices to bases Abdomen is status post paracentesis soft but with shifting dullness and caput medusa Extremities no edema Neuro alert and oriented Cranial nerves unremarkable Moves all extremities No asterixis For objective laboratory and imaging please see the bottom of the note: Assessment and plan: Acute kidney injury likely due to volume depletion and probably most prerenal azotemia although there may be a component of hepatorenal syndrome * 2 L of crystalloid and albumin resuscitation * Gentle hydration with normal saline 75 cc an hour * Monitor urine output Nephrolithiasis with calcium oxalate crystals in previous urinalysis: * Hydration to dilute urine to prevent further precipitation of calcium oxalate crystals * [facility] Social History household members: spouse Smoking Status: Current every day smoker alcohol intake: former Meds Home Medications and Allergies Home Medications ?Medication ?Instructions ?Recorded ?Confirmed ?Type ondansetron 4 mg disintegrating 4 mg PO Q6H PRN nausea and 11/02/23 01/31/25 Rx tablet vomiting #14 tabs tamsulosin 0.4 mg capsule (Flomax) 0.4 mg PO DAILY #14 caps 11/02/23 01/31/25 Rx diclofenac sodium 1 % topical gel 2.25 inch topical BI D 01/31/25 01/31/25 History furosemide 20 mg tablet 40 mg PO DAILY 01/31/25 07/12/01 History methocarbamol 500 mg tablet 500 mg PO .NIGHT 01/31/25 01/31/25 History spironolactone 25 mg tablet 100 mg PO DAILY 01/31/25 0 01/31/25 History Allergies Allergy/AdvReac Type Severity Reaction Status Date / Time No Known Drug Allergies Allergy Verified 11/02/23 10:44 Exam Vital Signs (past 8 hours): - 01/31/25 07:20 01/31/25 07:20 01/31/25 09:35 Temperature 97.3 F L Pulse Rate 85 88 Respiratory Rate 21 18 Blood Pressure 112/81 106/75 Pulse Oximetry 98 96 Oxygen Delivery Method 01/31/25 09:45 01/31/25 11:47 Temperature 97.4 F L Pulse Rate 83 Respiratory Rate 16 Blood Pressure 108/79 Pulse Oximetry 97 Oxygen Delivery Method Room Air Oxygen Delivery Method Room Air Objective Labs 01/30/25 23:03 01/31/25 16:31 Labs: Laboratory Results - last 24 hr 01/30/25 01/30/25 01/31/25 23:03 23:59 03:03 WBC 18.1 H RBC 6.36 H Hgb 17.9 H Hct 53.2 H MCV 83.7 MCH 28.1 MCHC 33.6 RDW 15.4 H Plt Count 214 Neut % (Auto) 83.9 H Lymph % (Auto) 7.9 L [place] % (Auto) 7.3 Eos % (Auto) 0.6 L Baso % (Auto) 0.3 Neut # (Auto) 21250 H Lymph # (Auto) 1400 [place] # (Auto) 1300 H Eos # (Auto) 100 Baso # (Auto) 100 Platelet Estimate Adequate on smear RBC Morphology Normal morphology PT 12.9 H INR 1.1 Sodium 128 L Potassium 3.7 Chloride 92 L Carbon Dioxide 26 BUN 43 H Creatinine 2.02 H Estimated GFR 41 L BUN/Creatinine Ratio 21.3 Glucose 122 H Calcium 9.1 Total Bilirubin 0.9 AST 20 ALT 17 Alkaline Phosphatase 65 Total Protein 5.8 L Albumin 3.0 L Globulin 2.8 Albumin/Globulin Ratio 1.1 Lipase 102 Fluid Color Fluid Appearance Fluid RBC Fld Tot Nucleated Cell Fluid Neutrophils % Fluid Lymphocytes % Fluid [place]/Macro/[place] % Body Fluid Clot Nasal Screen MRSA (PCR) 01/31/25 01/31/25 05:30 09:40 WBC RBC Hgb Hct MCV MCH MCHC RDW Plt Count Neut % (Auto) Lymph % (Auto) [place] % (Auto) Eos % (Auto) Baso % (Auto) Neut # (Auto) Lymph # (Auto) [place] # (Auto) Eos # (Auto) Baso # (Auto) Platelet Estimate RBC Morphology PT INR Sodium Potassium Chloride Carbon Dioxide BUN Creatinine Estimated GFR BUN/Creatinine Ratio Glucose Calcium Total Bilirubin AST ALT Alkaline Phosphatase Total Protein Albumin Globulin Albumin/Globulin Ratio Lipase Fluid Color Yellow Fluid Appearance Hazy Fluid RBC 522 Fld Tot Nucleated Cell 295 Fluid Neutrophils % 51 Fluid Lymphocytes % 42 Fluid Meso/Macro/[place] % 7 Body Fluid Clot No clots present Nasal Screen MRSA (PCR) Not detected Assessment & Plan Time-Based Coding :: [TOTAL MINUTES] spent with patient and on the chart (including review of chart, obtaining history, exam, reviewing outside data, placing orders, documenting exam and treatment plan, and counseling patient) on [DATE].
[2025-01-31 17:18] LABS: Blood Urea Nitrogen 40 mg/dL (9-20); Calcium 8.0 mg/dL (8.4-10.2); Carbon Dioxide 24 mmol/L (22-32); Chloride 94 mmol/L (98-107); Estimated Glomerular Filt Rate 47 mL/min (>60); Glucose 89 mg/dL (70-99); Potassium 3.7 mmol/L (3.4-5.1); Sodium 127 mmol/L (137-145)
[2025-01-31 17:19] LABS: HEMOLYSIS 59 (0-50)
--- NOTE | 2025-01-31 18:45 | PC.NURSE ---
PT A/OX4 THROUGHOUT SHIFT WITH NO C/O PAIN OR SOB. IVF RUNNING AT 75 MLS/HR. ANOTHER BMP SENT. SEE CHART FOR RESULTS. PER DR ELLINGTON, PLAN TO GENTLY REHYDRATE PATIENT AND MONITOR OUTPUT/ LABS. 200 MLS OF [place] URINE OUT. PT ATTEMPTING TO URINATE AGAIN AT THIS TIME. CARE ONGOING.
[2025-02-01] MEDS: SODIUM CHLORIDE 0.9% 1,000 ML 75 ML IV ×2 (00:42→13:20)
[2025-02-01 07:43] VITALS: BP 122/91; PULSE 106; RESP 18; TEMP 36.4; O2SAT 100
[2025-02-01 08:32] LABS: Clostridium difficile toxin AB Not Detected (Not Detect); Enteroaggregative E.coli Not Detected (Not Detect); Enteropathogenic E.coli Not Detected (Not Detect); Enterotoxigenic E.coli It/st Not Detected (Not Detect); Plesiomonsa shigelloides Not Detected (Not Detect); Shiga-like toxin-prod E.coli Not Detected (Not Detect)
[2025-02-01 08:39] LABS: Add Manual Diff / Slide Review NO; Hematocrit 40.8 % (41-53); Hemoglobin 13.6 g/dL (13.5-17.5); Lymphocytes Absolute Auto 1100 /uL (1100-4500); Mean Corpuscular HGB Conc 33.3 % (30-36); Mean Corpuscular Hemoglobin 27.7 PG (26-34); Mean Corpuscular Volume 83.1 fL (80-100); Platelet Count 163 X10^3/uL (150-400)
[2025-02-01 08:46] LABS: Alanine Aminotransferase 13 IU/L (<50); Albumin 2.5 g/dL (3.5-5.0); Albumin Globulin Ratio 1.0 (1.0-2.8); Alkaline Phosphatase 52 U/L (38-126); Blood Urea Nitrogen 34 mg/dL (9-20); Calcium 7.5 mg/dL (8.4-10.2); Carbon Dioxide 25 mmol/L (22-32); Chloride 95 mmol/L (98-107); Estimated Glomerular Filt Rate 52 mL/min (>60); Globulin 2.4 g/dL (1.7-4.1); Glucose 82 mg/dL (70-99); HEMOLYSIS < 15 (0-50); Potassium 3.3 mmol/L (3.4-5.1); Sodium 128 mmol/L (137-145); Total Protein 4.9 g/dL (6.3-8.2)
[2025-02-01] MEDS: NICOTINE 14 PATCH 14 MG TOP (09:32)
[2025-02-01] MEDS: METOCLOPRAMIDE 10 MG/2 ML INJ 5 MG IV ×2 (10:12→18:02)
[2025-02-01] MEDS: POTASSIUM CHLORIDE 20 MEQ TAB 40 MEQ PO ×2 (10:12→16:29)
[2025-02-01 11:39] LABS: Magnesium 1.6 mg/dL (1.6-2.3)
[2025-02-01 11:53] VITALS: BP 116/87; PULSE 104; RESP 16; TEMP 36.7; O2SAT 97
--- NOTE | 2025-02-01 13:06 | DI.US.S_ITS ---
PROCEDURE: US PERIPH VENOUS LOW EXTREM BI INDICATIONS: LLE>RLE swelling/edema, eval for DVT TECHNIQUE: Real-time imaging, as well as color and pulse Doppler interrogation, were performed of the deep veins of both legs from the inguinal ligament to the popliteal fossa, with documentation of the visualized calf veins. COMPARISON: None. FINDINGS: Right: The common femoral, femoral, popliteal, and the visualized calf veins are normally compressible, and free of intraluminal thrombus. Color and pulse Doppler demonstrate normal phasic intravascular flow. There is normal augmentation response to distal compression maneuver. Left: The common femoral, femoral, popliteal, and the visualized calf veins are normally compressible, and free of intraluminal thrombus. Color and pulse Doppler demonstrate normal phasic intravascular flow. There is normal augmentation response to distal compression maneuver. IMPRESSION: No findings of deep venous thrombosis in either lower extremity. Approved by: Hunter Martínez M.D. on 02/01/2025 at 17:03
--- NOTE | 2025-02-01 13:15 | PC.NURSE ---
2838 DR AGUILAR ROUNDED. DISCUSSED PLAN OF CARE WITH PATIENT AT BEDSIDE. AWARE OF PATIENT WITH MINIMAL URINE OUTPUT AND LEFT ANKLE SWELLING. MD TO ORDER L LEG ULTRASOUND. MD EDUCATED PATIENT ON NEED FOR ORAL REHYDRATION. MD STATES SHE PREFERS PATIENT TO DRINK MILK BUT PATIENT STATES HE IS LACTOSE INTOLERANT. NO PLANT MILK AVAILABLE IN HOSPITAL. PATIENT GIVEN CLEAN ENSURES AND ENCOURAGED TO INCREASE ORAL INTAKE. CARE ONGOING.
[2025-02-01] MEDS: MAGNESIUM CHLORIDE 64 MG TABLET 128 MG PO (13:20)
--- NOTE | 2025-02-01 15:04 | P.PN_ITS ---
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 Yesterday he received high volume paracentesis of 8 L in the emergency department. He also was given IV albumin and 2 L of IV fluids. He was initiated on IV fluids at 75 cc an hour as well. He was noted to have ureterolithiasis on CT scan with multiple stones layering in the left ureter, but no hydronephrosis. There is also evidence of multiple stones in the left and right renal pelvis. Reportedly a prior UH calcium oxalate crystals. Today, he reports he is feeling a bit better. He has passed some gas but has not been having diarrhea. No nausea or vomiting. He is drinking some fluids today. He is having minimal urine output. Exam Vital Signs (past 8 hours): - 02/01/25 07:30 02/01/25 07:43 02/01/25 11:53 Temperature 97.6 F 98.0 F Pulse Rate 106 H 104 H Respiratory Rate 18 16 Blood Pressure 122/91 H 116/87 Pulse Oximetry 100 97 Oxygen Delivery Method Room Air Oxygen Delivery Method Room Air Oxygen Flow Rate 0 Narrative Exam Narrative: GEN: Chronically ill-appearing adult male, Alert and oriented x 3, NAD HEENT:NC, Face symmetric CHEST: Respiratory excursions symmetric, CTAB CV: RRR, no M/R/G ABD: Soft, NT/moderately distended, BT present in all 4 quadrants EXTR: warm, well perfused, no C/C/E to the right leg, left lower extremity has trace to 1+ edema SKIN: warm and dry, no rash NEURO: Alert and oriented x 3, nonfocal Objective Labs 02/01/25 08:19 02/01/25 08:19 Labs: Laboratory Results - last 24 hr 01/31/25 02/01/25 02/01/25 16:31 04:45 08:19 WBC 13.5 H RBC 4.91 Hgb 13.6 Hct 40.8 L MCV 83.1 MCH 27.7 MCHC 33.3 RDW 15.3 H Plt Count 163 Neut % (Auto) 82.3 H Lymph % (Auto) 8.2 L [place] % (Auto) 7.9 Eos % (Auto) 1.3 L Baso % (Auto) 0.3 Neut # (Auto) 22103 H Lymph # (Auto) 1100 [place] # (Auto) 1100 H Eos # (Auto) 200 Baso # (Auto) 0 Sodium 127 L 128 L Potassium 3.7 3.3 L Chloride 94 L 95 L Carbon Dioxide 24 25 BUN 40 H 34 H Creatinine 1.80 H 1.67 H Estimated GFR 47 L 52 L BUN/Creatinine Ratio 22.2 H 20.4 Glucose 89 82 Calcium 8.0 L 7.5 L Magnesium 1.6 Total Bilirubin 0.8 AST 18 ALT 13 Alkaline Phosphatase 52 Total Protein 4.9 L Albumin 2.5 L Globulin 2.4 Albumin/Globulin Ratio 1.0 Stl C. cayetanensis PCR Not detected Stool Rotavirus (PCR) Not detected Stool Adenovirus (PCR) Not detected Stool Astrovirus (PCR) Not detected Stool Cryptosporidium PCR Not detected Stl E.coli Shiga Tox PCR Not detected St Sh/Enteroin Ecoli PCR Not detected Stl Enterotoxigenic E PCR Not detected Stool EPEC (PCR) Not detected Stl E. histolytica PCR Not detected Stool Giardia Lamblia PCR Not detected Stool Sapovirus (PCR) Not detected Stl P. shigelloides PCR Not detected St Y.enterocolitica PCR Not detected Stool Vibrio (PCR) Not detected Stl Vibrio cholerae PCR Not detected Stl Enteroaggr Ecoli PCR Not detected Stl Norovirus GI/GII PCR Not detected Campylobacter (PCR) Not detected C. difficile Tox (PCR) Not detected Salmonella (PCR) Not detected [facility] Social History household members: spouse Smoking Status: Current every day smoker alcohol intake: former Assessment & Plan Assessment & Plan narrative: 1. AP Overall, creatinine is improved down, with GFR improved from 41-52. Will continue gentle IV fluid hydration. I have encouraged increasing his oral fluid intake. Will continue to hold his diuretics for now. 2. Oliguria He reports he usually urinates 4-5 times daily. He does typically take his diuretics at home which he believes to be why his urine output is typically higher. That said, he is not drinking normally yet. He remains somewhat tachycardic. Will hold his diuretics for 1 more day and monitor. 3. Nausea/vomiting/diarrhea Improving. Encouraging oral intake as tolerated 4. Alcohol-induced cirrhosis As above, will hold diuretics for now. Plan to restart tomorrow 5. Left lower extremity swelling He has not been on DVT prophylaxis. However,he has been up frequently due to his bowels which have now slowed down. Will obtain ultrasound to assess for DVT for completeness 6. Leukocytosis Down. Will follow. 7. Hyponatremia Sodium is 128 today, this is stable. Will follow. 8. Hypokalemia Will replete and monitor. Code status Full Prophylaxis Continue ambulation. Await duplex ultrasound Disposition Possibly home tomorrow Time-Based Coding :: [TOTAL MINUTES] spent with patient and on the chart (including review of chart, obtaining history, exam, reviewing outside data, placing orders, documenting exam and treatment plan, and counseling patient) on [DATE].
[2025-02-01 16:18] VITALS: BP 122/92; PULSE 117; RESP 16; TEMP 36.3; O2SAT 96
[2025-02-01] MEDS: FUROSEMIDE 20 MG TABLET 40 MG PO (16:29)
--- NOTE | 2025-02-01 17:41 | PC.NURSE ---
PATIENT WITH CONTINUED MINIMAL URINE OUTPUT. TACHYCARDIC IN LOW 100S. MD AWARE. TELE ORDERED. LASIX RESTARTED. ULTRASOUND COMPLETED. CLARIFIED WITH MD ABOUT IVF. MD STATES WE WILL REASSESS AT END OF SHIFT IF PATIENT URINATES MORE. PT ALSO CONTINUES TO HAVE LOOSE BMS. OTHERWISE, PATIENT REMAINS A/OX4 WITH NO C/O PAIN OR SOB THROUGHOUT SHIFT. NAUSEA X1. STATED RELIEF WITH REGLAN. FREQUENTLY WALKING IN ROOM/ ONE LAP IN HALLWAY. NO CONCERNS AT THIS TIME. CARE ONGOING.
[2025-02-01] MEDS: FUROSEMIDE 20 MG/2 ML VIAL IV (19:00)
[2025-02-01 19:39] VITALS: BP 115/86; PULSE 110; RESP 16; TEMP 36.1; O2SAT 100
[2025-02-01 23:00] VITALS: BP 128/95; PULSE 108; RESP 25; TEMP 36.3; O2SAT 97
[2025-02-02 03:15] VITALS: BP 107/77; PULSE 109; RESP 19; TEMP 36.3; O2SAT 97
[2025-02-02 04:56] LABS: Add Manual Diff / Slide Review NO; Hematocrit 39.9 % (41-53); Hemoglobin 13.2 g/dL (13.5-17.5); Lymphocytes Absolute Auto 1300 /uL (1100-4500); Mean Corpuscular HGB Conc 33.1 % (30-36); Mean Corpuscular Hemoglobin 27.5 PG (26-34); Mean Corpuscular Volume 83.0 fL (80-100); Platelet Count 173 X10^3/uL (150-400)
[2025-02-02 05:23] LABS: Blood Urea Nitrogen 31 mg/dL (9-20); Calcium 7.2 mg/dL (8.4-10.2); Carbon Dioxide 22 mmol/L (22-32); Chloride 97 mmol/L (98-107); Estimated Glomerular Filt Rate 57 mL/min (>60); Glucose 92 mg/dL (70-99); Potassium 3.6 mmol/L (3.4-5.1); Sodium 125 mmol/L (137-145)
[2025-02-02 05:26] LABS: HEMOLYSIS 96 (0-50)
[2025-02-02 06:02] LABS: Magnesium 1.5 mg/dL (1.6-2.3)
[2025-02-02 08:00] VITALS: BP 111/85; PULSE 108; RESP 21; O2SAT 100
[2025-02-02 08:09] VITALS: BP 119/87; PULSE 101; RESP 16; TEMP 36.7; O2SAT 99
[2025-02-02] MEDS: NICOTINE 14 PATCH 14 MG TOP (08:11)
[2025-02-02] MEDS: SPIRONOLACTONE 25 MG TABLET 100 MG PO (08:11)
[2025-02-02] MEDS: MAGNESIUM OXIDE 400 MG TABLET PO (08:11)
[2025-02-02] MEDS: FUROSEMIDE 40 MG/4 ML VIAL IV (08:11)
[2025-02-02] MEDS: LOPERAMIDE 2 MG CAPSULE PO (08:11)
[2025-02-02 11:54] VITALS: BP 111/79; PULSE 96; RESP 20; TEMP 36.7; O2SAT 100
[2025-02-02 13:23] LABS: Blood Urea Nitrogen 32 mg/dL (9-20); Calcium 7.3 mg/dL (8.4-10.2); Carbon Dioxide 22 mmol/L (22-32); Chloride 97 mmol/L (98-107); Estimated Glomerular Filt Rate 54 mL/min (>60); Glucose 103 mg/dL (70-99); HEMOLYSIS < 15 (0-50); Potassium 3.3 mmol/L (3.4-5.1); Sodium 124 mmol/L (137-145)
[2025-02-02] MEDS: POTASSIUM CHLORIDE 20 MEQ TAB 40 MEQ PO (15:23)
[2025-02-02 15:36] VITALS: BP 123/89; PULSE 107; RESP 18; TEMP 36.4; O2SAT 99
--- NOTE | 2025-02-02 16:36 | PC.NURSE ---
IV D/C'D. DISCUSSED DISCHARGE PACKET WITH PATIENT/ . SIGNATURE PAGE SIGNED AND PLACED IN CHART. DISCHARGED AT 1626.
--- NOTE | 2025-02-02 20:16 | PM.DS.1 ---
History of Present Illness History of Present Illness Chief complaint: diarrhea + vomiting since am, abd bloat Narrative: Per H&P: 01/31: 44-year-old with a history of heavy alcohol use quit exactly 90 days prior to admission after he was hospitalized in the intensive care unit and informed that he was not going to survive if he continued drinking. Patient has had 1 week of watery diarrhea and intractable vomiting with abdominal bloating fever and chills. Patient was brought to the emergency room for evaluation of the symptoms Findings in the emergency department significant for large volume ascites which underwent paracentesis and 8 L was removed chased by IV albumin and 2 [place] [address] sodium of 128 BUN 43 creatinine 2 which is up from 6 and 0.9 total bilirubin which is improved from 1.[address] of the abdomen and pelvis demonstrates multiple small stones in the left pelvis and ureter but no hydronephrosis no stranding and no obstruction Patient was admitted or acute kidney injury likely volume loss from diarrhea and some component of volume loss in ascitic fluid as well as risk of hepatorenal syndrome. 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 AP, improving 2. Oliguria, improving 3. Nausea/vomiting/diarrhea, improving 4. Alcohol-induced cirrhosis, chronic 5. Left lower extremity swelling, resolved, no evidence of DVT on ultrasound 6. Leukocytosis, no evidence of infection 7. Hyponatremia, acute on chronic 8. Hypokalemia, repleting, likely secondary to GI losses Hospital Course: 44-year-old male with alcohol dependence presently in early remission, alcohol-induced cirrhosis with large volume ascites, BPH and tobacco dependence who was admitted with AP in the setting of nausea, vomiting, and diarrhea. In the emergency department he received high volume paracentesis of 8 L. He also was given IV albumin and 2 L of IV fluids. He was initiated on IV fluids at 75 cc an hour as well. He was noted to have ureterolithiasis on CT scan with multiple stones layering in the left ureter, but no hydronephrosis. There is also evidence of multiple stones in the left and right renal pelvis. Reportedly a prior Ua revealed calcium oxalate crystals. After admission, he had improvement in his AP but had ongoing oliguria. He was restarted on his usual home dose of furosemide orally, but continued to have low urine output. He was given an IV dose of furosemide on the evening of February 01. Subsequently had improved urine output. His sodium level dropped to 124 on the morning of discharge. Was given a single dose of furosemide 40 mg IV, with again improving urine output. He had intermittent hypokalemia and this was repleted. This is felt to be secondary to GI losses from diarrhea. He was requiring as needed Imodium for the diarrhea which was effective. Prior to discharge, a BMP was completed, with a sodium at 124, potassium of 3.3, BUN of 32, creatinine of 1.61. He was encouraged to follow-up within 48 hours at the [facility] medical clinic. He was encouraged to have repeat labs performed. He is also seeing Nephrology in 72 hours to establish care. At the time of discharge, patient was feeling improved. He was urinating well. Was having no nausea or vomiting and his diarrhea was being controlled with Imodium. Status at Discharge Cognitive/behavioral status at discharge: at baseline, oriented Functional status at discharge: independent ambulation Overall status at discharge: patient is progressing back to baseline Time Spent with Patient Time spent: Greater than 30 minutes Exam Vital Signs (past 8 hours): - 02/02/25 15:36 Temperature 97.5 F L Pulse Rate 107 H Respiratory Rate 18 Blood Pressure 123/89 Pulse Oximetry 99 Oxygen Delivery Method Room Air Oxygen Flow Rate 0 Narrative Exam Narrative: GEN: Chronically ill-appearing adult male, Alert and oriented x 3, NAD HEENT:NC, Face symmetric CHEST: Respiratory excursions symmetric, CTAB CV: Mildly tachy with RR, no M/R/G ABD: Soft, NT/moderately distended, BT present in all 4 quadrants EXTR: warm, well perfused, no C/C/E SKIN: warm and dry, no rash NEURO: Alert and oriented x 3, nonfocal Objective Labs 02/02/25 04:10 07/27/25 12:57 Labs: Laboratory Results - last 24 hr 02/02/25 02/02/25 04:10 12:57 WBC 14.4 H RBC 4.80 Hgb 13.2 L Hct 39.9 L MCV 83.0 MCH 27.5 MCHC 33.1 RDW 15.0 H Plt Count 173 Neut % (Auto) 81.1 H Lymph % (Auto) 8.8 L [place] % (Auto) 8.8 Eos % (Auto) 0.9 L Baso % (Auto) 0.4 Neut # (Auto) 33457 H Lymph # (Auto) 1300 [place] # (Auto) 1300 H Eos # (Auto) 100 Baso # (Auto) 100 Sodium 125 L 124 L Potassium 3.6 3.3 L Chloride 97 L 97 L Carbon Dioxide 22 22 BUN 31 H 32 H Creatinine 1.54 H 1.61 H Estimated GFR 57 L 54 L BUN/Creatinine Ratio 20.1 19.9 Glucose 92 103 H Calcium 7.2 L 7.3 L Magnesium 1.5 L PFSH Social History household members: spouse Smoking Status: Current every day smoker alcohol intake: former Discharge Plan Discharge Plan Patient Disposition: Home Provider Discharge Comment: You were admitted with evidence of acute kidney injury and decreased urine output in the setting of nausea, vomiting, and diarrhea. A large volume paracentesis was done in the emergency department (8 L of ascites was removed). Your kidney injury has improved. Your urine output improved with IV diuretics. Your diarrhea is better managed with Imodium. This is an [id number] medication that you can purchase at your [place] drug store. We did restart your oral diuretics and these should be continued and taken as prescribed. You do have a low sodium and potassium level. You did have some asymmetric swelling in your left leg compared to your right leg. We did perform an ultrasound to make sure you did not have a blood clot. This came back negative. Follow-up: You will need close follow-up with repeat blood work in 48 hours. [place] You will need a BMP and magnesium level. You reported having some blood in your urine when you take your diuretics. You should request a urology referral from your PCP. Return to the ED: Fevers, chills, shortness of breath, worsening abdominal pain or distention Inability to hold down food, fluids, or medications. Discharge orders & Medications Prescriptions: Continued tamsulosin [Flomax] 0.4 mg capsule 0.4 mg PO DAILY Qty: 14 0RF ondansetron 4 mg tablet,disintegrating 4 mg PO Q6H PRN (Reason: nausea and vomiting) Qty: 14 0RF spironolactone 25 mg tablet 100 mg PO DAILY furosemide 20 mg tablet 40 mg PO DAILY methocarbamol 500 mg tablet 500 mg PO .NIGHT Discontinued diclofenac sodium 1 % gel 2.25 inch topical BID Patient Comments: STATES HE STARTED VOMITTING AFTER USING THIS ON BACK Follow up/Referrals: Doctor Damico MD [Primary Care Provider, Medical] Discharge Health Status Multidrug resistant organism: No MDRO Diet/Activity/Treatments Diet: Diet as Tolerated and Low-sodium Activity: As tolerated. Oxygen: N/A Visit Report/Discharge Packet Instructions: DI for Cirrhosis, Low-Sodium Diet Stand Alone Forms: Patient Portal/API, Stroke Signs & Symptoms Discharge Data Primary Care Provider: Doctor Mookie
== END 2025-02-02 16:26 | disposition home or self-care (01) | DRG 683 ==
LOC: ED 01-31 07:47 → AC 01-31 07:56 → ICU 01-31 08:16
PROVIDERS: Family Medicine; Admitting Provider Internal Medicine; Emergency Provider Emergency Medicine; Referring Provider Emergency Medicine; Visit Provider Internal Medicine
DX: N17.9 Acute kidney failure, unspecified (principal); E87.1 Hypo-osmolality and hyponatremia; N20.2 Calculus of kidney with calculus of ureter; F17.200 Nicotine dependence, unspecified, uncomplicated; F10.21 Alcohol dependence, in remission; K70.31 Alcoholic cirrhosis of liver with ascites; R00.0 Tachycardia, unspecified; R34 Anuria and oliguria; R11.2 Nausea with vomiting, unspecified; R19.7 Diarrhea, unspecified; E87.6 Hypokalemia; M79.89 Other specified soft tissue disorders; N40.0 Benign prostatic hyperplasia without lower urinary tract symptoms
CPT/HCPCS: 36415; 49083; 74176; 80048; 80053; 83690; 83735; 85025; 85610; 87040; 87070; 87075; 87086; 87205; 87507; 87797; 89051; 93005; 93970; 96361; 96365; 96366; 96367; 99284; 99291; J0696; J1938; J2405; J2765; P9041

== ENCOUNTER 2025-02-05 11:21 | Emergency (ER) | payer OTHER, SELFPAY ==
[2025-01-31 09:52] VITALS: BMI 22.8
[2025-02-05 11:26] VITALS: BP 101/72; PULSE 128; RESP 18; TEMP 36.4; O2SAT 100; BMI 25.1
--- NOTE | 2025-02-05 11:54 | EKG_ITS ---
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
--- NOTE | 2025-02-05 12:07 | ED_ITS ---
HPI - Male Genitourinary General Chief complaint: Urogenital-Male Stated complaint: recently in ICU- pain and swelling in testicles Time Seen by Provider: 02/05/25 11:48 Source: patient Mode of arrival: Ambulatory History of Present Illness HPI Narrative: Patient here for left inguinal pain and swelling. Patient discharged here 3 days ago for ascites. Denies denies any testicular pain penile pain or scrotal swelling. Patient is on diuretics. No prior history of hernia repair of the inguinal canals. No urinary complaints. Related Data Home Medications ?Medication ?Instructions ?Recorded ?Confirmed furosemide 20 mg tablet 40 mg PO DAILY 01/31/2501/08 methocarbamol 500 mg tablet 500 mg PO .NIGHT 01/31/25 01/31/25 spironolactone 25 mg tablet 100 mg PO DAILY 01/31/25 0 01/31/25 Previous Rx's ?Medication ?Instructions ?Recorded ondansetron 4 mg disintegrating 4 mg PO Q6H PRN nausea and 11/02/23 tablet vomiting #14 tabs tamsulosin 0.4 mg capsule (Flomax) 0.4 mg PO DAILY #14 caps 11/02/23 Allergies Allergy/AdvReac Type Severity Reaction Status Date / Time No Known Drug Allergies Allergy Verified 02/05/25 11:39 Review of Systems Review of Systems Narrative: GENERAL: Negative chills, fatigue, malaise, fever, sweats. HEENT: Negative sinus pain, ear pain, sore throat RESPIRATORY: Negative dyspnea, cough CARDIOVASCULAR: Negative chest pain, palpitations GASTROINTESTINAL: Negative vomiting, nausea, positive chronic abdominal pain : Negative dysuria, frequency, hematuria MUSCULOSKELETAL: Positive muscle or bony pain SKIN: Negative rash, skin lesions NEUROLOGIC: Negative weakness, numbness ROS Unobtainable: All systems reviewed & are unremarkable except as noted in HPI and below Patient History Social History household members: spouse alcohol intake: former tobacco type: cigarettes alcohol intake frequency: 3 or more drinks per day Exam Narrative Exam Narrative: GENERAL: in no distress, not toxic not dyspneic HEAD: Normocephalic. EYES: Pupils equal round ENT: Mucous membranes moist. NECK: Trachea midline. CARDIOVASCULAR: Regular rate and rhythm RESPIRATORY: Clear to auscultation. Breath sounds equal bilaterally. No wheezes, rales, or rhonchi. GASTROINTESTINAL: Abdomen soft, there is reproducible left inguinal crease tenderness. Small possible reducible hernia at the site but no overlying erythema edema induration or fluctuance.. Abdomen otherwise soft. Is distended but no peritoneal signs no guarding no rebound. Bowel sounds are present. No CVA tenderness EXTREMITIES: No gross deformities. BACK: No flank tenderness. NEURO: AOx4. Clear speech SKIN: Warm and dry PSYCH: Not anxious, is cooperative Initial Vital Signs Initial Vital Signs: Vital Signs Temperature 97.5 F L 02/05/25 11:26 Pulse Rate 128 H 02/05/25 11:26 Respiratory Rate 18 02/05/25 11:26 Blood Pressure 101/72 02/05/25 11:26 Pulse Oximetry 100 02/05/25 11:26 Oxygen Delivery Method Room Air 02/05/25 11:26 Course Orders Ordered: Discontinued Medications Hydromorphone HCl (Hydromorphone 1 Mg Inj) 1 mg IM NOW ONE Stop: 02/05/25 12:06 Last Admin: 02/05/25 13:42 Dose: 1 mg Documented By: SHARLA Ondansetron HCl (Ondansetron 4 Mg/2 Ml Inj) 4 mg IV NOW PRN PRN Reason: Nausea And Vomiting Ondansetron HCl (Ondansetron 4 Mg Odt) 4 mg PO NOW PRN PRN Reason: Nausea And Vomiting Vital Signs Vital signs: Vital Signs - 8 hr 02/05/25 11:26 02/05/25 16:27 02/05/25 17:58 Temperature 97.5 F L Pulse Rate 128 H 93 H 91 H Respiratory Rate 18 17 17 Blood Pressure 101/72 113/53 L 120/82 Pulse Oximetry 100 99 98 Oxygen Delivery Method Room Air Room Air Room Air MDM - Male Genitourinary Lab Data 02/05/25 16:11 02/05/25 16:11 Labs: Lab Results 02/05/25 Range/Units 16:11 WBC 12.2 H (4.5-11.0) X10^3/uL RBC 4.90 (4.5-5.9) X10^6/uL Hgb 13.3 L (13.5-17.5) g/dL Hct 40.5 L (41-53) % MCV 82.6 (80-100) fL MCH 27.0 (26-34) PG MCHC 32.7 (30-36) % RDW 15.3 H (11.6-14.8) % Plt Count 183 (150-400) X10^3/uL Neut % (Auto) 83.3 H (50-75) % Lymph % (Auto) 9.7 L (25-40) % [place] % (Auto) 6.3 (3-14) % Eos % (Auto) 0.4 L (2-4) % Baso % (Auto) 0.3 (0-2) % Neut # (Auto) 61934 H (2792-7482) /uL Lymph # (Auto) 1200 (3903-6116) /uL [place] # (Auto) 800 (0-900) /uL Eos # (Auto) 0 (0-450) /uL Baso # (Auto) 0 (0-100) /uL Sodium 130 L (137-145) mmol/L Potassium 4.1 (3.4-5.1) mmol/L Chloride 101 (98-107) mmol/L Carbon Dioxide 23 (22-32) mmol/L BUN 35 H (9-20) mg/dL Creatinine 1.58 H (0.66-1.25) mg/dL Estimated GFR 55 L (>60) mL/min BUN/Creatinine Ratio 22.2 H (6-22) Glucose 109 H (70-99) mg/dL Calcium 8.4 (8.4-10.2) mg/dL Total Bilirubin 0.5 (0.2-1.3) mg/dL AST 30 (17-59) IU/L ALT 26 (<50) IU/L Alkaline Phosphatase 65 (38-126) U/L Total Protein 5.4 L (6.3-8.2) g/dL Albumin 2.6 L (3.5-5.0) g/dL Globulin 2.8 (1.7-4.1) g/dL Albumin/Globulin Ratio 0.9 L (1.0-2.8) Urine Dip Bedside Urine Glucose Negative Bedside Urine Bilirubin + 1 Bedside Urine Ketone - Negative Urine Specific [place] 1.015 Bedside Urine Occult Blood +++ Bedside Urine pH 6.0 Bedside Urine Protein ++ 100 Bedside Urine Urobilinogen - Negative Bedside Urine Nitrite - Negative Bedside Urine Leukocytes ++ [address] scan - abdomen/pelvis: Radiologist's Impression: [address] [address] [address] Scan Report Signed Patient: Mina Dunlap MR#: [id number] : 1980 Acct:[id number] Age/Sex: 44 / M Date of Service: 02/05/25 Loc: ED Accession Number: [id number] Procedure: CT abdomen pelvis wo con Ordering Provider: Matthieu Abraham MD PROCEDURE: CT ABDOMEN PELVIS WO CON INDICATIONS: Left inguinal pain/swelling TECHNIQUE: CT of the abdomen and pelvis was obtained without intravenous contrast. Coronal and sagittal reformats were performed. For radiation dose reduction, the following was used: automated exposure control, adjustment of mA and/or kV according to patient size. COMPARISON: [facility], CT, CT ABDOMEN PELVIS WO CON, 01/31/2025, 0:52. [facility], CT, CT ABDOMEN PELVIS W CON, 11/02/2023, 11:32. FINDINGS: Image quality: Diagnostic. Lower Chest: No significant findings. ABDOMEN: Liver: No contour-deforming mass. The liver demonstrates a mildly nodular contour. Gallbladder: The gallbladder is partially collapsed at the time of this study. Biliary ducts: No biliary dilation. Pancreas: No ductal dilation. Spleen: Size is within normal limits. Adrenal Glands: No adrenal nodules. Kidneys and Ureters: Within the left mid ureter, there is a series of obstructing stones seen, as on series 4, image 68, spanning 3 cm craniocaudal. Mild left-sided hydronephrosis and hydroureter can be seen. Bilateral nonobstructing kidney stones are seen, measuring up to 9 mm and 600 Hounsfield units on the right and 9 mm and 500 Hounsfield units on the left. No contour-deforming mass. Stomach and Bowel: Normal colonic caliber, without significant wall thickening. No dilated loops of small bowel are seen. Peritoneum: Moderate ascites is seen, measuring 5 Hounsfield units. No free air. Ventral Wall: No significant hernia. Abdominal Nodes: No retroperitoneal or mesenteric adenopathy by size criteria. Vessels: Aorta and inferior vena cava are normal in size. PELVIS: Pelvic Organs: Unremarkable. Bladder: Unremarkable. Pelvic Nodes: No enlarged lymph nodes. Miscellaneous: There is a moderate left inguinal hernia seen, which contains ascites fluid and fat. A small right-sided fat containing inguinal hernia can be seen. Bones: No aggressive osseous abnormality. The bones are abnormal, with irregularity and osteopenia. Several remote appearing central compression deformities can be seen. Significant facet hypertrophy can be seen at L4-L5, with at least moderate central canal narrowing IMPRESSION: There is moderate ascites. Within the left inguinal canal, there is a hernia seen, containing ascites fluid and fat. There is a small right-sided fat containing inguinal hernia present. There is a series of obstructing stone seen within the left mid ureter, with mild left-sided hydronephrosis and hydroureter. The appearance is similar to the recent prior. Bilateral nonobstructing kidney stones are seen. Abnormal bones, with generalized irregularity and osteopenia. Several associated central compression deformities can be seen, without acute features. Cirrhotic appearing liver, with a nodular contour. Significant facet arthropathy seen at L4-L5, with at least moderate central canal narrowing. Dictated by: Sergey Cook M.D. on 02/05/2025 at 11:55 Approved by: Sergey Cook M.D. on 02/05/2025 at 12:00 [facility] Narrative Medical decision making narrative: Patient here for left inguinal pain and swelling. Patient discharged here 3 days ago for ascites. Denies denies any testicular pain penile pain or scrotal swelling. Patient is on diuretics. No prior history of hernia repair of the inguinal canals. No urinary complaints. After history and exam, exam is reassuring. Has reproducible left inguinal canal tenderness with slight palpable mass. No blood work indicated at this time. CT abdomen pelvis ordered without contrast, Dilaudid intramuscular ordered. MDM Differential considered: Includes but not limited to inguinal hernia reducible/incarcerated/strangulated, muscle strain kidney stone Medical records reviewed: Discharge summary from February 02, 2025 from this hospital EKG sinus tachycardia rate 109 WBC 12.2 hemoglobin 13.3 sodium 130 potassium 4.1 BUN 35 creatinine 1.58 GFR 55 Imaging studies independently reviewed: CT abdomen pelvis, ascites, unchanged renal stones. Consultations: 3:08 p.m.. Spoke with urology, Dr. Anthony, regarding CT imaging. Kidney stones are unchanged from previous CT. He will as office see patient within the next week for re-evaluation. 5:30 p.m.. I spoke with hospitalist, dr cui, he knows the patient very well. Reviewed results with him laboratory studies and a CAT scan imaging. This is baseline for patient. No indication for readmission. Re-evaluations: 6:00 p.m.. Reviewed results with patient. Pain is controlled. Referral for General surgery and Urology provided. Reviewed results with him and findings, they are at baseline other than hernia finding. Return precautions reviewed. He desires discharge home. Discussion: Appropriate for discharge home. Laboratory studies are at baseline. Ascites is at baseline, reviewed with hospitalist no indication for admission. Kidney stone findings reviewed with urology services well. No need for admission at this time. Return precautions reviewed with patient. He desires discharge home. Diagnosis: Inguinal hernia Discharge Plan Departure Patient Disposition: Home Clinical Impression: Inguinal hernia of left side without obstruction or gangrene Instructions: DI for Groin Hernia, DI for Kidney Stones Activity Restrictions/Additional Instructions: I am glad you are feeling better. Your laboratory studies and imaging studies are. Inguinal hernia is seen on your CAT scan imaging on both sides right and left. Kidney stone was seen again compared to your previous CAT scan imaging this past week. General surgery referral has been provided for you regarding the inguinal hernia. Urology referral has been provided regarding the incidental kidney stone seen on CAT scan imaging both times. Your laboratory studies are at baseline at this time. Return if worse if any questions or concerns. Continue your home medications Prescriptions: No Action tamsulosin [Flomax] 0.4 mg capsule 0.4 mg PO DAILY Qty: 14 0RF ondansetron 4 mg tablet,disintegrating 4 mg PO Q6H PRN (Reason: nausea and vomiting) Qty: 14 0RF spironolactone 25 mg tablet 100 mg PO DAILY furosemide 20 mg tablet 40 mg PO DAILY methocarbamol 500 mg tablet 500 mg PO .NIGHT Referrals: Oscar Shannon DO [Physician, Urology] Baltazar Blackburn MD [Physician, General Surgery] Miscellaneous,MD Anastasia [Primary Care Provider, Medical] Stand Alone Forms: Patient Portal/API
[2025-02-05] MEDS: HYDROMORPHONE 1 MG INJ IM (13:42)
[2025-02-05 16:27] VITALS: BP 113/53; PULSE 93; RESP 17; O2SAT 99
[2025-02-05 16:32] LABS: Add Manual Diff / Slide Review NO; Hematocrit 40.5 % (41-53); Hemoglobin 13.3 g/dL (13.5-17.5); Lymphocytes Absolute Auto 1200 /uL (1100-4500); Mean Corpuscular HGB Conc 32.7 % (30-36); Mean Corpuscular Hemoglobin 27.0 PG (26-34); Mean Corpuscular Volume 82.6 fL (80-100); Platelet Count 183 X10^3/uL (150-400)
[2025-02-05 16:43] LABS: Alanine Aminotransferase 26 IU/L (<50); Albumin 2.6 g/dL (3.5-5.0); Albumin Globulin Ratio 0.9 (1.0-2.8); Alkaline Phosphatase 65 U/L (38-126); Blood Urea Nitrogen 35 mg/dL (9-20); Calcium 8.4 mg/dL (8.4-10.2); Carbon Dioxide 23 mmol/L (22-32); Chloride 101 mmol/L (98-107); Estimated Glomerular Filt Rate 55 mL/min (>60); Globulin 2.8 g/dL (1.7-4.1); Glucose 109 mg/dL (70-99); HEMOLYSIS < 15 (0-50); Potassium 4.1 mmol/L (3.4-5.1); Sodium 130 mmol/L (137-145); Total Protein 5.4 g/dL (6.3-8.2)
[2025-02-05 17:58] VITALS: BP 120/82; PULSE 91; RESP 17; O2SAT 98
== END 2025-02-05 18:26 | disposition home or self-care (01) ==
PROVIDERS: Emergency Provider Emergency Medicine
DX: K40.90 Unilateral inguinal hernia, without obstruction or gangrene, not specified as recurrent (principal)
CPT/HCPCS: 36415; 74176; 80053; 81003; 85025; 93005; 96372; 99283; 99284; J1171

== ENCOUNTER 2025-02-11 07:58 | Emergency (ER) | payer OTHER, SELFPAY ==
[2025-01-31 09:52] VITALS: BMI 22.8
[2025-02-11] VITALS (69 sets, daily range): BP systolic 97–135; BP diastolic 67–92; PULSE 89–107; RESP 17–26; TEMP 36.7; O2SAT 97–100; BMI 22.3
--- NOTE | 2025-02-11 08:18 | EKG_ITS ---
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 Electronically Signed On 02-15-2025 7:57:30 PDT by Jose Ramirez
--- NOTE | 2025-02-11 09:44 | ED_ITS ---
HPI - Abdominal Pain General Chief Complaint: Abdominal Pain Stated Complaint: Per patient, Needs Paracentesis Time Seen by Provider: 02/11/25 08:24 Source: patient Mode of arrival: Ambulatory History of Present Illness HPI narrative: This is a 44-year-old male with a history of cirrhosis and ascites presenting with request for paracentesis. He was hospitalized here with discharge on the 31 of January I reviewed that summary, at that time he had an 8 L or paracentesis done from the emergency department. He says that since then he has been taking spironolactone 25 mg daily and Lasix 20 mg daily. Has a referral pending to Gastroenterology, has referrals in to [place] have ultrasound-guided taps. Says that that will not happen until the end of the month Related Data Home Medications ?Medication ?Instructions ?Recorded ?Confirmed furosemide 20 mg tablet 40 mg PO DAILY 01/31/2501/08 methocarbamol 500 mg tablet 500 mg PO .NIGHT 01/31/25 01/31/25 spironolactone 25 mg tablet 100 mg PO DAILY 01/31/25 0 01/31/25 Previous Rx's ?Medication ?Instructions ?Recorded ondansetron 4 mg disintegrating 4 mg PO Q6H PRN nausea and 11/02/23 tablet vomiting #14 tabs tamsulosin 0.4 mg capsule (Flomax) 0.4 mg PO DAILY #14 caps 11/02/23 Allergies Allergy/AdvReac Type Severity Reaction Status Date / Time No Known Drug Allergies Allergy Verified 02/11/25 08:23 Patient History Social History household members: spouse Smoking Status: Current every day smoker alcohol intake: former Smoking Status: Current every day smoker tobacco type: cigarettes alcohol intake frequency: 3 or more drinks per day Exam Initial Vital Signs Initial Vital Signs: Vital Signs Temperature 98.0 F 02/11/25 08:23 Pulse Rate 107 H 02/11/25 08:23 Respiratory Rate 20 02/11/25 08:23 Blood Pressure 120/76 02/11/25 08:23 Pulse Oximetry 100 02/11/25 08:23 Oxygen Delivery Method Room Air 02/11/25 08:23 vital signs are reviewed Const General: cooperative and No acute distress HENFL Head: normocephalic and atraumatic Face and sinus: face symmetric Mouth: moist mucous membranes Eyes Pupils: PERRL EOM: EOM intact bilaterally Neck Neck: normal visual inspection, supple and No JVD Chest Chest: normal inspection of the chest Resp Effort & Inspection: normal respiratory effort and able to speak in complete sentences Auscultation: clear to auscultation bilaterally Cardio Rate: regular rate Rhythm: regular rhythm Heart Sounds: no murmurs Other: Normal heart rate GI Other: Bowel sounds are normal, abdomen is massively distended consistent with ascites, abdomen is nontender Back/Spine/Pelvis Back: normal to inspection Skin General: no rashes or lesions noted (Does not appear to be jaundiced) and warm Neuro General: patient alert, patient oriented x3 and moves all extremities Speech: speech normal Extrem General: full ROM Psych Appearance: grossly normal Procedures Paracentesis Indication: Ascites Procedure: therapeutic paracentesis Location: LLQ Local Anesthetic: lidocaine 1% Bedside Ultrasound Used: yes, Ascites confirmed and location marked Preparation: sterile prep and drape and Blade used to make bella in skin Amount of fluid obtained (mL): 12,000 Fluid: clear Patient Tolerated Procedure: Well Additional Comments: 75 g albumin infused during paracentesis Course Orders Ordered: ED Orders 02/11/25 08:18 EKG-12 Lead Routine 02/11/25 09:05 CBC Auto Diff [Complete Blood Count AUTO DIFF] Stat CMP [Comprehensive Metabolic Panel] Stat PT [Prothrombin Time INR] Stat Albumin Human (Albuminar) 50 gm in 200 mls @ 60 mls/hr IV NOW ONE Stop: 02/11/25 17:08 Last Admin: 02/11/25 15:21 Dose: 60 mls/hr Documented By: JOSE ARMANDO Albumin Human (Albuminar) 25 gm in 100 mls @ 60 mls/hr IV NOW ONE Stop: 02/11/25 17:04 Ondansetron HCl (Ondansetron 4 Mg Odt) 4 mg PO NOW PRN PRN Reason: Nausea And Vomiting Discontinued Medications Ondansetron HCl (Ondansetron 4 Mg/2 Ml Inj) 4 mg IV NOW PRN PRN Reason: Nausea And Vomiting Vital Signs Vital signs: Vital Signs - 8 hr 02/11/25 09:00 02/11/25 09:10 02/11/25 09:20 Pulse Rate 101 H 100 H 102 H Respiratory Rate 26 H 21 23 Blood Pressure Pulse Oximetry 100 100 Oxygen Delivery Method 02/11/25 09:30 02/11/25 09:30 02/11/25 09:40 Pulse Rate 99 H 99 H Respiratory Rate 22 21 Blood Pressure 124/84 Pulse Oximetry 100 99 Oxygen Delivery Method 02/11/25 09:50 02/11/25 10:00 02/11/25 10:00 Pulse Rate 95 H 92 H Respiratory Rate 19 20 Blood Pressure 127/87 Pulse Oximetry 99 100 Oxygen Delivery Method 02/11/25 10:10 02/11/25 10:20 02/11/25 10:30 Pulse Rate 94 H 93 H Respiratory Rate 18 17 Blood Pressure 126/89 Pulse Oximetry 100 98 Oxygen Delivery Method 02/11/25 10:30 02/11/25 10:40 02/11/25 10:50 Pulse Rate 91 H 93 H 94 H Respiratory Rate 18 21 18 Blood Pressure Pulse Oximetry 100 100 99 Oxygen Delivery Method 02/11/25 11:00 02/11/25 11:00 02/11/25 11:10 Pulse Rate 93 H 96 H Respiratory Rate 17 17 Blood Pressure 126/90 Pulse Oximetry 100 99 Oxygen Delivery Method 02/11/25 11:20 02/11/25 11:30 02/11/25 11:30 Pulse Rate 93 H 93 H Respiratory Rate 17 19 Blood Pressure 131/92 H Pulse Oximetry 99 99 Oxygen Delivery Method 02/11/25 11:40 02/11/25 11:50 02/11/25 12:00 Pulse Rate 96 H 98 H Respiratory Rate 21 22 Blood Pressure 135/92 H Pulse Oximetry 98 98 Oxygen Delivery Method 02/11/25 12:00 02/11/25 12:10 02/11/25 12:20 Pulse Rate 98 H 97 H 97 H Respiratory Rate 21 21 21 Blood Pressure Pulse Oximetry 98 97 98 Oxygen Delivery Method 02/11/25 12:30 02/11/25 12:30 02/11/25 13:41 Pulse Rate 96 H Respiratory Rate 22 Blood Pressure 112/71 97/68 Pulse Oximetry 97 Oxygen Delivery Method 02/11/25 13:41 02/11/25 13:50 02/11/25 14:00 Pulse Rate 97 H 97 H Respiratory Rate Blood Pressure 113/86 Pulse Oximetry 100 99 Oxygen Delivery Method 02/11/25 14:00 02/11/25 14:10 02/11/25 14:20 Pulse Rate 96 H 98 H 96 H Respiratory Rate Blood Pressure Pulse Oximetry 99 99 99 Oxygen Delivery Method Room Air 02/11/25 14:28 02/11/25 14:28 02/11/25 14:30 Pulse Rate 96 H Respiratory Rate Blood Pressure 112/80 114/82 Pulse Oximetry 99 Oxygen Delivery Method 02/11/25 14:30 02/11/25 14:40 02/11/25 14:40 Pulse Rate 97 H 98 H Respiratory Rate Blood Pressure 117/87 Pulse Oximetry 99 99 Oxygen Delivery Method 02/11/25 14:50 02/11/25 14:50 02/11/25 14:53 Pulse Rate 98 H Respiratory Rate Blood Pressure 111/83 113/81 Pulse Oximetry 100 Oxygen Delivery Method 02/11/25 14:53 02/11/25 14:55 02/11/25 14:55 Pulse Rate 96 H 96 H Respiratory Rate Blood Pressure 114/81 Pulse Oximetry 100 100 Oxygen Delivery Method 02/11/25 15:00 02/11/25 15:00 02/11/25 15:05 Pulse Rate 96 H Respiratory Rate Blood Pressure 114/81 103/71 Pulse Oximetry 99 Oxygen Delivery Method 02/11/25 15:05 02/11/25 15:10 02/11/25 15:10 Pulse Rate 96 H 97 H Respiratory Rate Blood Pressure 106/76 Pulse Oximetry 100 100 Oxygen Delivery Method 02/11/25 15:15 02/11/25 15:15 02/11/25 15:20 Pulse Rate 103 H Respiratory Rate Blood Pressure 106/76 110/79 Pulse Oximetry 99 Oxygen Delivery Method 02/11/25 15:20 02/11/25 15:25 02/11/25 15:25 Pulse Rate 97 H 100 H Respiratory Rate Blood Pressure 114/81 Pulse Oximetry 100 100 Oxygen Delivery Method 02/11/25 15:30 02/11/25 15:30 02/11/25 15:35 Pulse Rate 93 H Respiratory Rate Blood Pressure 123/74 117/78 Pulse Oximetry 100 Oxygen Delivery Method 02/11/25 15:35 02/11/25 15:40 02/11/25 15:40 Pulse Rate 95 H 95 H Respiratory Rate Blood Pressure 117/80 Pulse Oximetry 100 99 Oxygen Delivery Method 02/11/25 15:45 02/11/25 15:45 02/11/25 15:49 Pulse Rate 97 H 105 H Respiratory Rate Blood Pressure 111/79 Pulse Oximetry 100 100 Oxygen Delivery Method 02/11/25 15:50 Pulse Rate Respiratory Rate Blood Pressure 111/79 Pulse Oximetry Oxygen Delivery Method MDM - Abdominal Pain Lab Data Lab results narrative: Normal INR, his white count was 4.8 appears to be approximately his baseline. Creatinine is elevated today although his creatinine is also chronically potassium is normal. Sodium is slightly low 02/11/25 09:05 02/11/25 09:05 Labs: Lab Results 02/11/25 Range/Units 09:05 WBC 14.8 H (4.5-11.0) X10^3/uL RBC 5.25 (4.5-5.9) X10^6/uL Hgb 14.4 (13.5-17.5) g/dL Hct 43.7 (41-53) % MCV 83.1 (80-100) fL MCH 27.5 (26-34) PG MCHC 33.1 (30-36) % RDW 15.7 H (11.6-14.8) % Plt Count 246 (150-400) X10^3/uL Neut % (Auto) 84.6 H (50-75) % Lymph % (Auto) 8.5 L (25-40) % [place] % (Auto) 5.7 (3-14) % Eos % (Auto) 0.5 L (2-4) % Baso % (Auto) 0.7 (0-2) % Neut # (Auto) 76058 H (5331-3845) /uL Lymph # (Auto) 1300 (4818-3692) /uL [place] # (Auto) 900 (0-900) /uL Eos # (Auto) 100 (0-450) /uL Baso # (Auto) 100 (0-100) /uL PT 13.1 H (9.4-12.5) SECONDS INR 1.2 (0.9-1.3) Sodium 130 L (137-145) mmol/L Potassium 4.0 (3.4-5.1) mmol/L Chloride 102 (98-107) mmol/L Carbon Dioxide 18 L (22-32) mmol/L BUN 45 H (9-20) mg/dL Creatinine 2.00 H (0.66-1.25) mg/dL Estimated GFR 42 L (>60) mL/min BUN/Creatinine Ratio 22.5 H (6-22) Glucose 134 H (70-99) mg/dL Calcium 8.8 (8.4-10.2) mg/dL Total Bilirubin 0.8 (0.2-1.3) mg/dL AST 39 (17-59) IU/L ALT 29 (<50) IU/L Alkaline Phosphatase 74 (38-126) U/L Total Protein 6.3 (6.3-8.2) g/dL Albumin 3.1 L (3.5-5.0) g/dL Globulin 3.2 (1.7-4.1) g/dL Albumin/Globulin Ratio 1.0 (1.0-2.8) MDM Narrative Medical decision making narrative: 44-year-old male with a history of cirrhosis and ascites presenting requesting paracentesis. He is not febrile his abdomen is not tender I considered but do not suspect spontaneous bacterial peritonitis. Has poor renal functions, these are his baseline or nearly so. He had a 12 L therapeutic paracentesis with infusion of 75 g of albumin. He is advised to follow up with his primary care provider and I recommended he see a relationship specialist as soon as possible as well as he arrange for scheduled paracentesis Discharge Plan Departure Patient Disposition: Home Clinical Impression: Abdominal ascites Activity Restrictions/Additional Instructions: Today, we did a large volume paracentesis. It is important that you continue your furosemide and spironolactone and limit your salt intake to no more than 2000 mg per day. Follow up as soon as possible with your primary care provider. I think it is important that you see a liver specialist as soon as possible. I also think it is important that you have scheduled paracentesis going forward. I am glad that you are in process of arranging this. He is having increased abdominal pain vomiting fevers or other acute symptoms recheck in the emergency department. Follow up with your primary care provider later this week and I recommend you have repeat labs at that time. Prescriptions: No Action tamsulosin [Flomax] 0.4 mg capsule 0.4 mg PO DAILY Qty: 14 0RF ondansetron 4 mg tablet,disintegrating 4 mg PO Q6H PRN (Reason: nausea and vomiting) Qty: 14 0RF spironolactone 25 mg tablet 100 mg PO DAILY furosemide 20 mg tablet 40 mg PO DAILY methocarbamol 500 mg tablet 500 mg PO .NIGHT Referrals: Provider,Mitali MILLS [Primary Care Provider, Family Practice] Stand Alone Forms: Patient Portal/API
[2025-02-11 09:54] LABS: Add Manual Diff / Slide Review NO; Hematocrit 43.7 % (41-53); Hemoglobin 14.4 g/dL (13.5-17.5); Lymphocytes Absolute Auto 1300 /uL (1100-4500); Mean Corpuscular HGB Conc 33.1 % (30-36); Mean Corpuscular Hemoglobin 27.5 PG (26-34); Mean Corpuscular Volume 83.1 fL (80-100); Platelet Count 246 X10^3/uL (150-400)
[2025-02-11 09:56] LABS: INR 1.2 (0.9-1.3); Prothrombin Time 13.1 SECONDS (9.4-12.5)
[2025-02-11 10:12] LABS: Alanine Aminotransferase 29 IU/L (<50); Albumin 3.1 g/dL (3.5-5.0); Albumin Globulin Ratio 1.0 (1.0-2.8); Alkaline Phosphatase 74 U/L (38-126); Blood Urea Nitrogen 45 mg/dL (9-20); Calcium 8.8 mg/dL (8.4-10.2); Carbon Dioxide 18 mmol/L (22-32); Chloride 102 mmol/L (98-107); Estimated Glomerular Filt Rate 42 mL/min (>60); Globulin 3.2 g/dL (1.7-4.1); Glucose 134 mg/dL (70-99); HEMOLYSIS 91 (0-50); Potassium 4.0 mmol/L (3.4-5.1); Sodium 130 mmol/L (137-145); Total Protein 6.3 g/dL (6.3-8.2)
[2025-02-11] MEDS: ALBUMIN HUMAN 50 GM/200 ML VIAL IV (15:21)
[2025-02-11] MEDS: PANTOPRAZOLE DR 20 MG TABLET PO (17:11)
[2025-02-11] MEDS: ALBUMIN HUMAN 25 GM/100 ML VIAL IV (18:31)
== END 2025-02-11 20:10 | disposition home or self-care (01) ==
PROVIDERS: Emergency Provider Emergency Medicine
DX: R18.8 Other ascites (principal)
CPT/HCPCS: 49082; 80053; 85025; 85610; 93005; 96365; 96366; 99284; P9041